=== PATIENT | male | born 1960 | race Two or more races ===

== ENCOUNTER 2016-07-29 16:19 | Inpatient (IN) | payer MEDICAID ==
--- NOTE | 2016-07-29 16:47 | EDPHY ---
H & P Time Seen by Provider: 07/29/16 16:43 HPI/ROS: Chief complaint. Swelling to abdomen and legs HPI. 56-year-old male presents with abdomen leg and scrotal swelling over the past 2 weeks. He has a long history of cirrhosis and hepatitis-C. This was secondary to IVDA though he says he has been clean 5-6 years. He also had had problem with alcoholism but did not drink for 4 years however he started drinking again this past 6 months. His last drink was 2 weeks ago. He has had right shoulder pain for 2 weeks, abdominal distension, swelling of the scrotum and bilateral leg edema for the past 2 weeks. There has been no trauma or injury. He also notes blurry vision and off balance. He is short of breath. No fever. ROS Constitutional. Weakness Eyes. no problems with vision ENT. no sore throat, no nasal drainage Cardiovascular. no chest pain Respiratory. Shortness of breath Abdominal. Abdominal distention . Scrotal swelling making it difficult to urinate MS. Swelling of both legs Skin. no rash Lymph. no swollen glands Neuro. No headache but difficult to walk and some confusion, blurry vision and off balance Past Medical/Surgical History: Past medical history hep C, cirrhosis, IVDA, alcoholism, back surgery Social History: , non smoker, no recent alcohol for 2 weeks Smoking Status: Never smoked Physical Exam: General Appearance: Alert well-developed male moderate distress vital signs are stable Eyes: Sclera are icteric. ENT, Mouth: Mucous membranes are moist. Respiratory: Decreased breath sounds on right Cardiovascular: Regular rate and rhythm. Gastrointestinal: Abdomen is distended and nontender. Ascites fluid waves. No masses or organomegaly. Scrotum is markedly edematous and swollen Neurological: Awake and alert, sensory and motor exams grossly normal. Skin: Warm and dry, no rashes. Musculoskeletal: Neck is supple nontender. Extremities 4+ edema to legs Psychiatric: Patient is oriented X 3, there is no agitation. Constitutional: Initial Vital Signs Temperature (C) 36.7 C 07/29/16 16:25 Heart Rate 87 07/29/16 16:25 Respiratory Rate 18 07/29/16 16:25 Blood Pressure 143/88 H 07/29/16 16:25 O2 Sat (%) 95 07/29/16 16:25 O2 Delivery Mode Room Air Allergies/Adverse Reactions: No Known Allergies Allergy (Verified 08/01/14 13:52) Home Medications: Medication Instructions Recorded NK [No Known Home Meds] 07/29/16 Medical Decision Making - Diagnostics EKG Interpretation: EKG interpreted by me shows normal sinus rhythm normal interval. There is left axis deviation. QRS is normal there does appear to be prolonged QT interval with QTC at 5:06 a.m.. There is some anterior T-wave inversion but no ST elevation or depression. Rate is 78 Imaging Results: Imaging Impressions Abdomen CT 07/29/16 17:21 Impression: 1. Mild right pleural effusion with adjacent consolidation and possible pneumonitis. Rule out pneumonia. 2. Moderate to large amount of ascites with progression of cirrhosis. 3. Portal hypertension with large tortuous collateral vessel in the upper abdomen between the proximal portal vein and the left renal vein. 4. Mild to moderate splenomegaly. 5. Possible distal right ureteral calculus just above the UVJ without significant hydronephrosis. 6. Nonobstructive calculus lower pole left kidney. These findings were discussed by telephone with Dr. Vinayak Uriarte at 1935 hrs. Chest X-Ray 07/29/16 17:21 Impression: 1. Peribronchial thickening with right basilar consolidation that could represent atelectasis, effusion, and/or pneumonia. 2. Linear left basilar atelectasis/scarring. Head CT 07/29/16 17:22 Impression: 1. Mild to moderate atrophy. 2. No hemorrhage, mass effect, or definite acute peripheral infarct. 3. Moderate nonspecific hypodensities in the white matter of bilateral cerebral hemispheres. Differential diagnosis includes microvascular ischemic disease, post-infectious/post-inflammatory sequela, atypical demyelinating disease, or migraine-related sequela. Small white matter lacunar infarcts may also have this appearance. These findings were discussed by telephone with Dr. Vinayak Uriarte at 1928 hrs. Chest x-ray interpreted by me and reviewed with Dr. Alcantara shows consolidation in the right lung base and right pleural effusion Abdominal CT with IV contrast reviewed by me and discussed with Dr. Estevez shows progressive cirrhosis compared to previous CT. Consolidation right lower lobe consistent with pneumonia. Lots of ascites. Huge varicosities. Vague density around the UVJ of unclear significance. Procedures: IV normal saline, blood cultures, lactate here, sepsis workup Rocephin IV for apparent right lower lobe infiltrate after blood cultures ED Course/Re-evaluation: Re-evaluation 745 patient is stable. The patient and I discussed imaging lab results, treatment plan including recommendation for admission. Patient expresses understanding and agreement I consulted and discussed the case with Dr. Palmer, hospitalist, who agrees to the admission Differential Diagnosis: Patient has elevated ammonia level. I think any altered mental status is secondary to metabolic. I considered intracranial bleeding secondary to elevated INR from liver failure. Significant ascites. Patient also appears to have pneumonia. Sepsis workup was performed and has a normal lactate. - Data Points Laboratory Results: Laboratory Results 07/29/16 17:55 07/29/16 17:55 07/29/16 07/29/16 07/29/16 17:55 17:55 17:55 WBC RBC Hgb Hct MCV MCH MCHC RDW Plt Count MPV Neut % (Auto) Lymph % (Auto) [place] % (Auto) Eos % (Auto) Baso % (Auto) Nucleat RBC Rel Count Absolute Neuts (auto) Absolute Lymphs (auto) Absolute Monos (auto) Absolute Eos (auto) Absolute Basos (auto) Absolute Nucleated RBC Immature Gran % Seg Neutrophils % Band Neutrophils % Lymphocytes % Monocytes % Eosinophils % Basophils % Immature Gran # Absolute Seg Neuts Absolute Band Neuts Absolute Lymphocytes Absolute Monocytes Absolute Eosinophils Absolute Basophils Platelet Estimate Polychromasia Oval Macrocytes Echinocytes Acanthocytes (Spur) PT 40.4 SEC H SEC (12.0-15.0) INR 4.09 H (0.83-1.16) APTT 46.8 SEC H SEC (23.0-38.0) VBG Lactic Acid Sodium 134 mEq/L mEq/L (134-144) Potassium 3.5 mEq/L mEq/L (3.5-5.2) Chloride 103 mEq/L mEq/L (97-110) Carbon Dioxide 24 mEq/l mEq/l (22-31) Anion Gap 7 mEq/L L mEq/L (8-16) BUN 12 mg/dL mg/dL (7-23) Creatinine 0.7 mg/dL mg/dL (0.7-1.3) Estimated GFR > 60 Glucose 116 mg/dL H mg/dL (70-100) Calcium 7.9 mg/dL L mg/dL (8.5-10.4) Total Bilirubin 18.1 mg/dL H mg/dL (0.1-1.4) Conjugated Bilirubin 10.2 mg/dL H mg/dL (0.0-0.5) Unconjugated Bilirubin 7.9 mg/dL H mg/dL (0.0-1.1) AST 60 IU/L H IU/L (17-59) ALT 39 IU/L IU/L (21-72) Alkaline Phosphatase 186 IU/L H IU/L (38-126) Ammonia 68.0 uMOL/L H uMOL/L (9.0-30.0) Total Protein 6.4 g/dL g/dL (6.3-8.2) Albumin 2.5 g/dL L g/dL (3.5-5.0) Lipase 116.0 IU/L IU/L (23-300) 07/29/16 07/29/16 17:55 17:55 WBC 3.69 10^3/uL L 10^3/uL (3.80-9.50) RBC 3.19 10^6/uL L 10^6/uL (4.40-6.38) Hgb 11.9 g/dL L g/dL (13.7-17.5) Hct 34.3 % L % (40.0-51.0) MCV 107.5 fL H fL (81.5-99.8) MCH 37.3 pg H pg (27.9-34.1) MCHC 34.7 g/dL g/dL (32.4-36.7) RDW 14.5 % % (11.5-15.2) Plt Count 44 10^3/uL L 10^3/uL (150-400) MPV 11.3 fL fL (8.7-11.7) Neut % (Auto) Not Reported Lymph % (Auto) Not Reported [place] % (Auto) Not Reported Eos % (Auto) Not Reported Baso % (Auto) Not Reported Nucleat RBC Rel Count 0.0 % % (0.0-0.2) Absolute Neuts (auto) Not Reported Absolute Lymphs (auto) Not Reported Absolute Monos (auto) Not Reported Absolute Eos (auto) Not Reported Absolute Basos (auto) Not Reported Absolute Nucleated RBC 0.00 10^3/uL 10^3/uL (0-0.01) Immature Gran % Not Reported Seg Neutrophils % 64 % % Band Neutrophils % 7 % % Lymphocytes % 11 % % Monocytes % 16 % % Eosinophils % 1 % % Basophils % 1 % % Immature Gran # Not Reported Absolute Seg Neuts 2.36 10^/uL 10^/uL (1.70-6.50) Absolute Band Neuts 0.26 10^3/uL 10^3/uL (0.00-0.70) Absolute Lymphocytes 0.41 10^3/uL L 10^3/uL (1.00-3.00) Absolute Monocytes 0.59 10^3/uL 10^3/uL (0.30-0.80) Absolute Eosinophils 0.04 10^3/uL 10^3/uL (0.03-0.40) Absolute Basophils 0.04 10^3/uL 10^3/uL (0.02-0.10) Platelet Estimate DECREASED L (ADEQ) Polychromasia 1+ H Oval Macrocytes 1+ H Echinocytes 1+ H Acanthocytes (Spur) 1+ H PT INR APTT VBG Lactic Acid 1.9 mmol/L mmol/L (0.7-2.1) Sodium Potassium Chloride Carbon Dioxide Anion Gap BUN Creatinine Estimated GFR Glucose Calcium Total Bilirubin Conjugated Bilirubin Unconjugated Bilirubin AST ALT Alkaline Phosphatase Ammonia Total Protein Albumin Lipase Medications Given: Discontinued Medications Ceftriaxone Sodium/Dextrose (Rocephin 1 Gm (Premix)) 50 mls @ 100 mls/hr IV EDNOW ONE PRN Reason: Protocol Stop: 07/29/16 20:13 Last Admin: 07/29/16 20:36 Dose: 50 mls Departure - Departure Disposition: [facility] Acute Clinical Impression: Cirrhosis Qualifiers: Hepatic cirrhosis type: alcoholic cirrhosis Ascites presence: with ascites Qualified Code(s): K70.31 - Alcoholic cirrhosis of liver with ascites Pneumonia Qualifiers: Pneumonia type: due to unspecified organism Laterality: right Lung location: lower lobe of lung Qualified Code(s): J18.1 - Lobar pneumonia, unspecified organism Condition: Fair
[2016-07-29 18:02] LABS: ADD DIFF? YES; ADD MORPH? NO; ADD SCAN? NO; ATYPICAL LYMPHOCYTE FLAG 40 (0-99); FRAGMENT RBC FLAG 0 (0-99); HEMATOCRIT 34.3 % (40.0-51.0); HEMOGLOBIN 11.9 g/dL (13.7-17.5); LEFT SHIFT FLG 10 (0-99); LIPEMIA HEMOLYSIS FLAG 90 (0-99); MEAN CELL HEMOGLOBIN 37.3 pg (27.9-34.1); MEAN CELL HEMOGLOBIN CONCENTR. 34.7 g/dL (32.4-36.7); MEAN CELL VOLUME 107.5 fL (81.5-99.8); MEAN PLATELET VOLUME 11.3 fL (8.7-11.7); PLATELET CLUMPS FLAG 10 (0-99); RED BLOOD CELL COUNT 3.19 10^6/uL (4.40-6.38); RED CELL DISTRIBUTION WIDTH 14.5 % (11.5-15.2)
[2016-07-29 18:06] LABS: PLATELET COUNT 44 10^3/uL (150-400)
[2016-07-29 18:11] LABS: INR 4.09 (0.83-1.16); PROTIME(PATIENT) 40.4 SEC (12.0-15.0)
[2016-07-29 18:12] LABS: APTT 46.8 SEC (23.0-38.0)
[2016-07-29 18:26] LABS: ALANINE AMINOTRANSFERASE 39 IU/L (21-72); ALBUMIN 2.5 g/dL (3.5-5.0); ALKALINE PHOSPHATASE 186 IU/L (38-126); ANION GAP 7 mEq/L (8-16); ASPARTATE AMINOTRANSFERASE 60 IU/L (17-59); BILIRUBIN,TOTAL 18.1 mg/dL (0.1-1.4); BILIRUBIN-CONJUGATED 10.2 mg/dL (0.0-0.5); BILIRUBIN-UNCONJUGATED 7.9 mg/dL (0.0-1.1); CALCIUM 7.9 mg/dL (8.5-10.4); CARBON DIOXIDE 24 mEq/l (22-31); CHLORIDE 103 mEq/L (97-110); CREATININE 0.7 mg/dL (0.7-1.3); GLOMERULAR FILTRATION RATE > 60; GLUCOSE 116 mg/dL (70-100); POTASSIUM 3.5 mEq/L (3.5-5.2); SODIUM 134 mEq/L (134-144); TOTAL PROTEIN 6.4 g/dL (6.3-8.2)
[2016-07-29] MEDS ORDERED: IOPAMIDOL (ISOVUE-300) 100 ML BTL IV ONE (18:38)
--- NOTE | 2016-07-29 18:40 | CPEKG ---
Heart Rate: 78 RR Interval: 769 P-R Interval: 168 QRSD Interval: 92 QT Interval: 444 QTC Interval: 506 P Sears: 27 QRS Sears: -7 T Wave Sears: 19 EKG Severity - ABNORMAL ECG - EKG Impression: SINUS RHYTHM EKG Impression: NONSPECIFIC T ABNORMALITIES, ANTERIOR LEADS EKG Impression: PROLONGED QT INTERVAL Electronically Signed By: Flaca Jay 29-Jul-2016 22:04:02
[2016-07-29 18:42] LABS: ACANTHOCYTES 1+; ECHINOCYTES 1+; MACROCYTES 1+; PLATELET ESTIMATE DECREASED (ADEQ); POLYCHROMASIA 1+
[2016-07-29 20:38] LABS: COLOR AMBER; LEUKOCYTE ESTERASE,URINE NEGATIVE (NEGATIVE); NITRITE,URINE NEGATIVE (NEGATIVE)
[2016-07-29 20:54] LABS: BACTERIA TRACE /hpf (NONE SEEN); MUCUS TRACE /lpf (NONE-1+)
[2016-07-29] MEDS ORDERED: ONDANSETRON 4 MG/2 ML VIAL IVP PRN (21:00)
[2016-07-29] MEDS ORDERED: ACETAMINOPHEN 500 MG TAB PO PRN (21:00)
--- NOTE | 2016-07-29 21:42 | GHP ---
[f rep st] HISTORY AND PHYSICAL DATE OF ADMISSION: 07/29/2016 CHIEF COMPLAINT: Edema. HISTORY: The patient is a 56-year-old male with known cirrhosis of the liver from hepatitis C and a lcohol. He did quit drinking successfully for 4 years but picked it up again about 6 months ago. Vinicio islas subsequently noticed worsening edema as well as his eyes turning yellow and his urine turning xander ge and he decided it was a good idea to stop drinking again. He has now been off alcohol for 2 week s and swears he will never drink ever again. He has chronic lower extremity edema, but over the las t 2 weeks he has noticed abdominal distention and scrotal swelling with a 15 pound weight gain. Sin ce he quit drinking 2 weeks ago, his urine is actually returning to a more normal color and his thinks that his eyes are less yellow. The edema is so bad he is having a difficult time ambulating and getting around. He denies any abdominal pain. There has been no fever but he has occasionally been coughing and he has a severe pain in his right shoulder. PAST MEDICAL HISTORY: 1. 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 2. 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 MEDICATIONS: None. ALLERGIES: No known drug allergies. SOCIAL HISTORY: Occasional tobacco. Alcohol as above. Quit 2 weeks ago but had restarted. Previo us IV drug abuse but none for 5 years. Lives with his . 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 REVIEW OF SYSTEMS: Complete review of systems obtained. Review of system is negative regarding con stitutional, HEENT, GI, pulmonary, cardiovascular, , hematology, skin, musculoskeletal, endocrine, psych for positives as in HPI. FAMILY HISTORY: Reviewed, noncontributory to presenting complaint. PHYSICAL EXAMINATION: GENERAL: Well-developed, well-nourished male, in no acute distress. VITAL S IGNS: Temperature is 36.7, pulse 87, blood pressure 143/88, saturating 95% on room air. EYES: Scl eral icterus. Pupils equal and reactive to light. ENT: Normal ears and nose. Hearing intact. No rmal lips and teeth. Oropharynx moist. NECK: Trachea midline. No thyromegaly. CHEST: Normal ef fort. Lungs clear to auscultation bilaterally. CARDIOVASCULAR: Regular rate and rhythm. No murmu r. 4+ lower extremity edema. ABDOMEN: Soft, distended. Hepatomegaly. Nontender. SKIN: Warm, d ry, intact without rash. MUSCULOSKELETAL: No cyanosis or clubbing. Strength 5/5 upper and lower e xtremities. NEUROLOGIC: Cranial nerves intact. Normal sensation light touch. He does have positi ve asterixis. PSYCH: Alert and oriented x3. Normal affect. Normal judgment. Normal insight. No rmal memory. LABORATORY DATA: White count 3.69, hematocrit 34.3, platelets 44. Sodium 134, potassium 3.5, chlor aleksey of 103, bicarb 24, BUN 12, creatinine 0.17, glucose 116, total bilirubin is 18, AST is 60, jimmie ia 68. Lactate is 1.9. INR 4.04. Chest x-ray shows an infiltrate at the right base. CT scan of t he abdomen and pelvis shows a large amount of ascites with cirrhosis. Head CT is negative. Chest x -ray reviewed by me, that is my personal interpretation regarding right basilar infiltrate. This ca se was discussed with Dr. Uriarte, emergency room physician. ASSESSMENT/PLAN: 1. Ascites, edema and scrotal swelling all consistent with massive volume overload due to cirrhosis of the liver and portal hypertension. We will start him on IV Lasix and spironolactone. He would benefit from a paracentesis but I am concerned with his INR of 4 and his platelets of 44, of increas ed risk with his procedure. We will hold off on ordering it for now and just try diuresis. 2. 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 He quit again 2 weeks ago and he was encouraged to continue with this. We will follow his LFTs. 3. Hepatic encephalopathy. We will start him on lactulose. 4. Right lower lobe pneumonia. He does have a cough and referred pain to his right shoulder. My s uspicion is there is an element of pneumonia. We will start him on Levaquin. CODE STATUS: Full. ADMISSION STATUS: 1. We will admit to inpatient as he is medically complex anticipate greater than 2 midnights. 2. DVT prophylaxis. He is auto anticoagulated so therefore low risk. /[id number]/MODL
[2016-07-29] MEDS: FUROSEMIDE 40 MG/4 ML VIAL IVP SCH (22:42)
[2016-07-29] MEDS: LACTULOSE 20 GM/30 ML UDCUP PO SCH (22:43)
[2016-07-29] MEDS: SPIRONOLACTONE 25 MG TAB PO SCH (22:45)
[2016-07-30 05:37] LABS: ADD DIFF? YES; ADD MORPH? NO; ATYPICAL LYMPHOCYTE FLAG 0 (0-99); FRAGMENT RBC FLAG 0 (0-99); HEMOGLOBIN 11.1 g/dL (13.7-17.5); LEFT SHIFT FLG 10 (0-99); LIPEMIA HEMOLYSIS FLAG 90 (0-99); MEAN CELL HEMOGLOBIN 37.9 pg (27.9-34.1); MEAN CELL HEMOGLOBIN CONCENTR. 34.7 g/dL (32.4-36.7); MEAN CELL VOLUME 109.2 fL (81.5-99.8); MEAN PLATELET VOLUME 10.6 fL (8.7-11.7); PLATELET CLUMPS FLAG 10 (0-99); RED BLOOD CELL COUNT 2.93 10^6/uL (4.40-6.38); RED CELL DISTRIBUTION WIDTH 14.6 % (11.5-15.2)
[2016-07-30 05:40] LABS: ADD SCAN? NO; PLATELET COUNT 35 10^3/uL (150-400)
[2016-07-30 05:45] LABS: INR 4.06 (0.83-1.16); PROTIME(PATIENT) 40.2 SEC (12.0-15.0)
[2016-07-30 05:50] LABS: ALANINE AMINOTRANSFERASE 37 IU/L (21-72); ALBUMIN 2.1 g/dL (3.5-5.0); ALKALINE PHOSPHATASE 148 IU/L (38-126); ANION GAP 5 mEq/L (8-16); ASPARTATE AMINOTRANSFERASE 52 IU/L (17-59); BILIRUBIN,TOTAL 16.6 mg/dL (0.1-1.4); BILIRUBIN-CONJUGATED 9.7 mg/dL (0.0-0.5); BILIRUBIN-UNCONJUGATED 6.9 mg/dL (0.0-1.1); CALCIUM 7.9 mg/dL (8.5-10.4); CARBON DIOXIDE 25 mEq/l (22-31); CHLORIDE 104 mEq/L (97-110); CREATININE 0.7 mg/dL (0.7-1.3); GLOMERULAR FILTRATION RATE > 60; GLUCOSE 122 mg/dL (70-100); MAGNESIUM 1.6 mg/dL (1.6-2.3); POTASSIUM 3.1 mEq/L (3.5-5.2); SODIUM 134 mEq/L (134-144); TOTAL PROTEIN 5.9 g/dL (6.3-8.2)
[2016-07-30] MEDS: FUROSEMIDE 40 MG/4 ML VIAL IVP SCH ×3 (06:06→21:52)
[2016-07-30] MEDS ORDERED: MAGNESIUM SULF 2 GM/WATER 50 ML IV ONE (06:07)
[2016-07-30] MEDS ORDERED: PROTOCOL POTASSIUM 1 DOSE MISC PRN (06:07)
[2016-07-30] MEDS ORDERED: POTASSIUM CL 10 MEQ TAB PO ONE (06:10)
[2016-07-30 06:38] LABS: PLATELET ESTIMATE DECREASED (ADEQ)
[2016-07-30 06:39] LABS: ACANTHOCYTES 1+; MACROCYTES 1+
[2016-07-30 07:25] LABS: POTASSIUM 3.1 mEq/L (3.5-5.2)
[2016-07-30] MEDS: SPIRONOLACTONE 25 MG TAB PO SCH (08:29)
[2016-07-30] MEDS: LACTULOSE 20 GM/30 ML UDCUP PO SCH ×3 (08:29→21:52)
[2016-07-30] MEDS ORDERED: oxyCODONE IR 5 MG TAB PO PRN (11:07)
[2016-07-30] MEDS ORDERED: SPIRONOLACTONE 50 MG TAB PO ONE (13:25)
[2016-07-30] MEDS ORDERED: PHYTONADIONE 2.5 MG/2.5 ML ORAL UDL PO ONE (13:26)
--- NOTE | 2016-07-30 13:35 | HOSPPROG ---
Hospitalist Progress Note Assessment/Plan: 56 y/o male new to my care today with h/o Hep C and alcohol abuse presenting with #anasarca in the setting of ESLD due to hep c and alcohol related cirrhosis ( child Rasheed score C) -increase aldactone to 100mg daily -cont iv lasix for now -will defer paracentesis given severe thrombocytopenia and coagulopathy -I discussed the case with Dr. Eng from GI who will see the patient in consultation later today #reported hepatic encephalopathy -cont lactulose #CAP -cont Levaquin #coagulopathy -start daily vitamin k and monitor Dispo: I discussed the severity of the disease with the patient who verbalizes understanding to his situation. He would like to continue to maintain sobriety and explore all treatment options and is not ready to pursue hospice/palliative care Subjective: reports improved abd swelling. reports bloating Objective: Vital Signs Temp Pulse Resp BP Pulse Ox 36.8 C 79 20 130/87 H 93 07/30/16 11:12 07/30/16 11:12 07/30/16 11:12 07/30/16 11:12 07/30/16 11:12 Laboratory Results 07/30/16 05:02 07/30/16 05:02 07/29/16 07/30/16 07/31/16 05:59 05:59 05:59 Intake Total 300 740 Output Total 2175 870 Balance -1875 -130 PT 40.2 SEC (12.0-15.0) H 07/30/16 05:02 INR 4.06 (0.83-1.16) H 07/30/16 05:02 ct abd reviewed no obvious liver mass - Physical Exam Constitutional: no apparent distress, appears nourished, not in pain Ears, Nose, Mouth, Throat: moist mucous membranes, hearing normal, ears appear normal, no oral mucosal ulcers Cardiovascular: regular rate and rhythym, no murmur, rub, or gallop Respiratory: no respiratory distress, no rales or rhonchi, clear to auscultation Gastrointestinal: normoactive bowel sounds, soft, non-tender abdomen, no palpable masses, distension, No guarding, No rebound Skin: no rashes or abrasions, no fluctuance, no induration, other (spider angiomas on chest) Neurologic: AAOx3, sensation intact bilaterally Psychiatric: interacting appropriately, not anxious, not encephalopathic, thought process linear ICD10 Worksheet Patient Problems: Problems Problem Status Onset Cellulitis Acute Cirrhosis of liver due to hepatitis C Acute Cirrhosis Acute Pneumonia Acute
--- NOTE | 2016-07-30 15:04 | GCON ---
[f rep st] CONSULTATION DATE OF CONSULTATION: 07/30/2016 CHIEF COMPLAINT: Ascites. HISTORY OF PRESENT ILLNESS: I am asked to see this patient in consultation by Dr. Najera for chief complaint of ascites and anasarca. The patient is a 56-year -old with a long history of alcohol abuse and hepatitis C, previously seen by my partner, Dr. Jean Gerardo, and offered treatment for his hepatitis C, but was not able to coordinate with insurance and then was lost to followup. He did have an upper endoscopy in October 2014. EGD showed grade 1 esophageal varices and gastroesophageal varices. He was placed on a beta ronaldo. The patient has been drinking, although 3 weeks ago developed significant edema and decided to quit drinking. He had no alcohol for the past 3 weeks, but continued to have abdominal swelling and lower leg swelling. He tells me he has never had ascites before. He has had some nausea and vomiting, but no hematemesis, no melena, no bright red blood in his stools, no diarrhea or constipation, no significant abdominal pain, but has been found to have probable pneumonia during his evaluation on this hospital stay. He has been placed on Lasix and Aldactone. He states his ascites feels somewhat better today. ALLERGIES: Patient has no reported allergies. MEDICATIONS: Upon admission, patient was taking no medications. PAST MEDICAL HISTORY: Notable for liver disease from alcohol and hepatitis C. He has postherpetic neuralgia. SOCIAL HISTORY: The patient drinks alcohol, but stopped 3 weeks ago. FAMILY HISTORY: Negative for liver disease. REVIEW OF SYSTEMS: I performed a complete review of systems, which is negative except for pertinent positives and negatives as noted in the HPI above. PHYSICAL EXAMINATION: VITAL SIGNS: The patient is afebrile at 36.8, BP 136/60 , pulse 79. CONSTITUTIONAL: Patient alert and oriented x3. HEENT: Eyes have scleral icterus. Oral: Has no mouth lesions. CARDIOVASCULAR: Regular rate and rhythm. CHEST: Clear to auscultation with some decreased breath sounds in the left base. GI: Has a distended abdomen. Positive bowel sounds. Soft. Ascites present. NEUROLOGIC: No asterixis. SKIN: No rashes, but does have significant pedal edema to both lower extremities. LABORATORY DATA: BUN and creatinine are 12 and 0.7, sodium is 134, potassium 3.1, alk phos 148, AST 52, ALT 57, total bilirubin was 16.6, albumin is low at 2.1. Pro time elevated at 40.2 with an INR 4.06. Lipase normal at 116. White count is 3. Platelets are low at 39. He is anemic with a hemoglobin of 11.1, hematocrit of 32, with an MCV of 109. MELD score sodium is 34. CT scan shows pleural effusion, likely pneumonia, ascites, evidence of portal hypertension. ASSESSMENT: 1. Patient with liver disease, underlying cirrhosis, probably with portal hypertension and ascites. The patient has had decompensation, likely from recent alcohol, but also may be contributed from recent pneumonia and infection. At this point, he has no overt signs of GI bleeding. Given his coagulopathy and low platelets, he would be overall higher risk for paracentesis , and I think it is reasonable to treat with diuretics. He is already on antibiotics for his pneumonia. 2. Hepatic encephalopathy. The patient improved with lactulose. 3. Significant coagulopathy. 4. Thrombocytopenia. PLAN: Agree with supportive care. I would recommend increasing his diuretics and monitoring his sodium and renal function, monitoring his I's and O's. Agree with low-sodium diet. Recommend thiamine and folate. We will check a baseline alpha fetoprotein. The patient may need to start beta blockers again, as he was on carvedilol 6.25 mg previously for his mild underlying varices. The patient should have followup with our print line supervisor and may reconsider treatment for hepatitis C if he can remain abstinent from alcohol. At this point, he would not be a transplant candidate given his recent alcohol use. Thank you for this consult. /[id number]/MODL MTDD
[2016-07-30] MEDS ORDERED: PNEUMOCOCCAL 0.5ML VACCINE VIAL IM ONE (16:36)
[2016-07-30 19:19] LABS: POTASSIUM 3.2 mEq/L (3.5-5.2)
[2016-07-30] MEDS ORDERED: POTASSIUM CL 20 MEQ TAB PO ONE (20:44)
[2016-07-30 22:19] VITALS: PULSE 88
[2016-07-31] MEDS ORDERED: oxyCODONE IR 5 MG TAB PO SCH
[2016-07-31] MEDS ORDERED: LACTULOSE PO SCH
[2016-07-31] MEDS ORDERED: CARVEDILOL 3.125 MG TAB PO SCH
[2016-07-31] MEDS ORDERED: FUROSEMIDE 40 MG TAB PO SCH
[2016-07-31 05:13] LABS: % IMMATURE GRANULYOCYTES 1.4 % (0.0-1.1); ABSOLUTE IMMATURE GRANULOCYTES 0.07 10^3/uL (0.00-0.10); ADD DIFF? NO; ADD MORPH? NO; ADD SCAN? NO; ATYPICAL LYMPHOCYTE FLAG 0 (0-99); FRAGMENT RBC FLAG 0 (0-99); HEMATOCRIT 32.5 % (40.0-51.0); HEMOGLOBIN 11.4 g/dL (13.7-17.5); LEFT SHIFT FLG 10 (0-99); LIPEMIA HEMOLYSIS FLAG 90 (0-99); MEAN CELL HEMOGLOBIN 37.4 pg (27.9-34.1); MEAN CELL HEMOGLOBIN CONCENTR. 35.1 g/dL (32.4-36.7); MEAN CELL VOLUME 106.6 fL (81.5-99.8); MEAN PLATELET VOLUME 10.6 fL (8.7-11.7); PLATELET CLUMPS FLAG 0 (0-99); RED BLOOD CELL COUNT 3.05 10^6/uL (4.40-6.38); RED CELL DISTRIBUTION WIDTH 14.4 % (11.5-15.2)
[2016-07-31 05:19] LABS: PLATELET COUNT 42 10^3/uL (150-400)
[2016-07-31 05:28] LABS: ALANINE AMINOTRANSFERASE 37 IU/L (21-72); ALBUMIN 2.4 g/dL (3.5-5.0); ALKALINE PHOSPHATASE 133 IU/L (38-126); ANION GAP 8 mEq/L (8-16); ASPARTATE AMINOTRANSFERASE 57 IU/L (17-59); BILIRUBIN,TOTAL 19.1 mg/dL (0.1-1.4); CALCIUM 7.7 mg/dL (8.5-10.4); CARBON DIOXIDE 24 mEq/l (22-31); CHLORIDE 101 mEq/L (97-110); CREATININE 0.7 mg/dL (0.7-1.3); GLOMERULAR FILTRATION RATE > 60; GLUCOSE 129 mg/dL (70-100); POTASSIUM 3.3 mEq/L (3.5-5.2); SODIUM 133 mEq/L (134-144); TOTAL PROTEIN 6.3 g/dL (6.3-8.2)
[2016-07-31 05:30] LABS: INR 3.95 (0.83-1.16); PROTIME(PATIENT) 39.3 SEC (12.0-15.0)
[2016-07-31 05:47] LABS: SPECIMEN ICTERUS 21
[2016-07-31 05:53] LABS: BILIRUBIN-UNCONJUGATED 9.1 mg/dL (0.0-1.1)
[2016-07-31 06:10] LABS: PLATELET ESTIMATE DECREASED (ADEQ)
[2016-07-31] MEDS: FUROSEMIDE 40 MG/4 ML VIAL IVP SCH ×2 (06:21→14:26)
[2016-07-31] MEDS ORDERED: POTASSIUM CL 10 MEQ TAB PO ONE ×2 (07:45→10:30)
[2016-07-31 08:45] VITALS: BP 129/78; RESP 16; TEMP 98.8; O2SAT 92
[2016-07-31] MEDS ORDERED: SPIRONOLACTONE 100 MG TAB PO SCH ×2 (09:00)
[2016-07-31] MEDS: LACTULOSE 20 GM/30 ML UDCUP PO SCH (10:01)
--- NOTE | 2016-07-31 14:43 | GDS ---
[f rep st] DISCHARGE SUMMARY DISCHARGE DIAGNOSES: 1. End-stage liver disease secondary to alcohol-related cirrhosis as well as hepatitis C. 2. Improved hepatic encephalopathy. 3. Community-acquired pneumonia. 4. Coagulopathy due to liver disease. 5. Thrombocytopenia due to liver disease. 6. Alcohol abuse. 7. Hepatitis C. CONSULTANTS: Dr. Marisela Eng, [facility] of [facility]. HOSPITAL COURSE AND STAY BY PROBLEM: 1. End-stage liver disease due to alcohol-related cirrhosis as well as hepatitis C: The patient pr esented to the hospital with edema and anasarca. He has been drinking and has not been on medicatio ns to manage his ascites. In the hospital, he was started on IV Lasix at a dose of 40 mg q.8 hours as well as Aldactone. On the day prior to discharge, his Aldactone was increased to 100 mg daily. On day of discharge, the patient states he is feeling much better and has lost 5 kg. He understands that he must quit drinking if he would like to prolong his life span. He plans to follow up at the [facility] next week, where he should have a metabolic panel drawn to ensure his electrolytes and kidneys are tolerating the diuretics. During this hospital stay, he was also started on lactulo se which will be continued on discharge. He was also restarted on Coreg to decrease the risk of eso phageal varicocele bleeding. 2. Community-acquired pneumonia: On initial presentation, a chest x-ray was done that showed perib ronchial thickening with right basilar consolidation possibly representing pneumonia. The patient a lso reported some shoulder pain. Subsequently, he has been treated with levofloxacin. On day of , his oxygen saturations are above 90% on room air. He is not coughing. His shoulder pain i s improving. PHYSICAL EXAM: VITAL SIGNS: On day of discharge, blood pressure 129/78, pulse of 88, respiratory r ate 16, O2 saturation 92% on room air, temperature afebrile. GENERAL: No acute distress. EYES: I cteric sclerae. HEART: S1, S2. LUNGS: Clear. ABDOMEN: Soft and distended with bulging flanks. EXTREMITIES: Bilateral pitting edema. PERTINENT LABS AND STUDIES DONE THIS HOSPITAL STAY: A CT of the abdomen and pelvis done 07/29/2016, refer to report. Head CT done 07/29/2016, refer to report. DISCHARGE MEDICATIONS: Please refer to discharge medication reconciliation in [facility] for full det ails. Below is a preliminary list. New medications on hospital discharge: Levofloxacin 750 mg daily to complete 5 days of treatment, C oreg 3.125 mg p.o. b.i.d., lactulose 20 g p.o. b.i.d., Aldactone 100 mg daily in the morning, Lasix 40 mg in the morning, oxycodone 5-10 mg p.o. q.4 hours p.r.n. shoulder pain, prescription for #20 wa s given. DISCHARGE INSTRUCTIONS: The patient will be discharged from the hospital where he should follow up at the [facility] earlier next week where he should have a metabolic panel done prior to the ap pointment. He should also follow up with Dr. Gerardo at [facility] in 2-4 weeks. Once again , he was counseled to abstain from alcohol use. Greater than 30 minutes were spent on the discharge of this patient. /[id number]/MODL
== END 2016-07-31 14:55 | disposition home or self-care (01) | DRG 432 ==
LOC: F3E 22:13
PROVIDERS: ADMIT Internal Medicine; ATTEND Internal Medicine
DX: K70.31 Alcoholic cirrhosis of liver with ascites (principal); K70.11 Alcoholic hepatitis with ascites; K70.40 Alcoholic hepatic failure without coma; J18.9 Pneumonia, unspecified organism; D68.4 Acquired coagulation factor deficiency; B19.20 Unspecified viral hepatitis C without hepatic coma
CPT/HCPCS: 96365; 97161-GP; 97166-GO; 97535-GO; G0009; J0696; J1956; J2405; Q9967

== ENCOUNTER 2016-09-06 13:44 | Inpatient (IN) | payer MEDICAID ==
--- NOTE | 2016-09-06 14:32 | EDPHY ---
H & P Stated Complaint: ran out of all meds x 2 weeks including lasix, swollen from abd to toes Time Seen by Provider: 09/06/16 14:31 - Personal History Current Tetanus/Diphtheria Vaccine: Unsure Current Tetanus Diphtheria and Acellular Pertussis (TDAP): Unsure Tetanus Vaccine Date: 2009 - Medical/Surgical History Hx Asthma: No Hx Chronic Respiratory Disease: No Hx Diabetes: No Hx Cardiac Disease: Yes Hx Renal Disease: No Hx Cirrhosis: No Hx Alcoholism: No Hx HIV/AIDS: No Hx Splenectomy or Spleen Trauma: No Other PMH: Knee surgery, recent shingles rash 2014 with postherpetic neuralgia, Hepatitis C, back pain - slipped disks, pinched nerves, ETOH abuse, shoulder pain - Social History Smoking Status: Never smoked Constitutional: Initial Vital Signs Temperature (C) 36.5 C 09/06/16 13:48 Heart Rate 92 09/06/16 13:48 Respiratory Rate 18 09/06/16 13:48 Blood Pressure 109/78 09/06/16 13:48 O2 Sat (%) 93 09/06/16 13:48 O2 Delivery Mode Nasal Cannula O2 (L/minute) 2 Allergies/Adverse Reactions: No Known Allergies Allergy (Verified 08/01/14 13:52) Home Medications: Medication Instructions Recorded Unobtainable 09/06/16 Medical Decision Making - Diagnostics Imaging Results: Imaging Impressions Abdomen Ultrasound 09/06/16 14:44 Impression: Large-volume ascites. ED Course/Re-evaluation: CHIEF COMPLAINT: Diffuse edema, poor mobility HISTORY OF PRESENT ILLNESS: The patient is a 56 y/o male, with a history of hepatitis C and cirrhosis, complaining of diffuse body swelling worsening over the last 2 weeks. He reports he was admitted a few weeks ago for the same issue , but did not require a paracentesis. He was discharged with a prescription and instructions to follow up with his PCP at the end of this month; he has an appointment scheduled for 09/10. He ran out of medication 2 weeks ago and complains of worsening abdominal swelling extending into all extremities. He's had very limited mobility due to this and requires assistance even getting to the bathroom. REVIEW OF SYSTEMS: A 10 point review of systems was performed and is negative with the exception of the elements mentioned in the history of present illness. PHYSICAL EXAM: HR, BP, O2 Sat, RR. Temp noted General Appearance: Alert, well hydrated, appropriate, and non-toxic appearing. Head: Atraumatic without scalp tenderness or obvious injury Eyes: Pupils equal, round, reactive to light and accommodation, EOMI, no trauma , no injection. Scleral icterus. Nose: Atraumatic, no rhinorrhea, clear. Throat: mucus membranes moist. Neck: Supple, nontender, no lymphadenopathy. Respiratory: No retractions, no distress, no wheezes, and no accessory muscle use. Lungs are clear to auscultation bilaterally. Cardiovascular: Regular rate and rhythm, no murmurs, rubs, or gallops. Bilateral carotid, radial, dorsalis pedis, and posterior tibial pulses intact. Good capillary refill all extremities. Gastrointestinal: Abdomen is tense and distended with a positive fluid wave, nontender, no masses, no rebound, no guarding, no peritoneal signs. Musculoskeletal: Normal active ROM of all extremities, atraumatic. Diffuse peripheral edema. Neurological: Alert, appropriate, and interactive. Nonfocal neuro exam. Skin: No rashes, good turgor, no nodules on palpation. Jaundiced. Past medical history: Hepatitis C, cirrhosis, liver disease Past surgical history: Denies Family history: noncontributory Social history: Family member at bedside. History of alcohol abuse. PCP: Dr. Davis Reviewed prior medical records including admission 07/29/16 for similar symptoms. DIAGNOSTICS/PROCEDURES/CRITICAL CARE TIME: Abdomen US: ascites. DIFFERENTIAL DIAGNOSIS: The differential diagnosis for the patient's diffuse body swelling included but was not limited to liver failure, ascites, cirrhosis , hypoalbuminemia, congestive heart failure, cor pulmonale, venous stasis, trauma, and DVT. MEDICAL DECISION MAKING: This is a 56 y/o male with a history of cirrhosis who presents with diffuse peripheral edema and tense abdomen with distension and fluid wave and inability to care for himself due to these symptoms. He reports his symptoms have worsened over the last 2 weeks since he ran out of his medication following a recent admission for the same complaint. His presentation is consistent with liver failure. Plan for IV, labs, and US-guided paracentesis. Patient's platelets are low at 26, Hct 19, INR 4.6. This elevates his risk of spontaneous bleeding significantly so we will cancel the paracentesis for now. Ammonia 74. 1522: Consulted with Dr. Bro, hospitalist. She would like case management involved as patient likely needs palliative care. location manager is aware. 1558: location manager discussed palliative care options with the patient. He is open to palliative care consult. Critical care time spent by me, Dr. Gardner, exclusively with this patient was 45 minutes, exclusive of PA time and exclusive of procedures. The organ system at risk was multisystem including hepatic and vascular. I gave discussed care and and management at length with the hospitalist and family caseworker to determine what palliative care we could offer patient. He required admission to prevent encephalopathy and worsening ascites. - Data Points Laboratory Results: Laboratory Results 09/06/16 14:55 09/06/16 14:55 09/06/16 09/06/16 09/06/16 14:55 14:55 14:55 WBC RBC Hgb Hct MCV MCH MCHC RDW Plt Count MPV Neut % (Auto) Lymph % (Auto) Pender % (Auto) Eos % (Auto) Baso % (Auto) Nucleat RBC Rel Count Absolute Neuts (auto) Absolute Lymphs (auto) Absolute Monos (auto) Absolute Eos (auto) Absolute Basos (auto) Absolute Nucleated RBC Immature Gran % Immature Gran # Platelet Estimate Oval Macrocytes Acanthocytes (Spur) Smear Review By PT 44.6 SEC H SEC (12.0-15.0) INR 4.62 H (0.83-1.16) APTT 54.1 SEC H SEC (23.0-38.0) Sodium 131 mEq/L L mEq/L (134-144) Potassium 3.7 mEq/L mEq/L (3.5-5.2) Chloride 105 mEq/L mEq/L (97-110) Carbon Dioxide 20 mEq/l L mEq/l (22-31) Anion Gap 6 mEq/L L mEq/L (8-16) BUN 12 mg/dL mg/dL (7-23) Creatinine 0.6 mg/dL L mg/dL (0.7-1.3) Estimated GFR > 60 Glucose 167 mg/dL H mg/dL (70-100) Calcium 7.5 mg/dL L mg/dL (8.5-10.4) Total Bilirubin 17.8 mg/dL H mg/dL (0.1-1.4) Conjugated Bilirubin 9.6 mg/dL H mg/dL (0.0-0.5) Unconjugated Bilirubin 8.2 mg/dL H mg/dL (0.0-1.1) AST 54 IU/L IU/L (17-59) ALT 29 IU/L IU/L (21-72) Alkaline Phosphatase 104 IU/L IU/L (38-126) Ammonia 74.0 uMOL/L H uMOL/L (9.0-30.0) Total Protein 6.4 g/dL g/dL (6.3-8.2) Albumin 2.2 g/dL L g/dL (3.5-5.0) Lipase 125.0 IU/L IU/L (23-300) 09/06/16 14:55 WBC 3.42 10^3/uL L 10^3/uL (3.80-9.50) RBC 1.70 10^6/uL L 10^6/uL (4.40-6.38) Hgb 6.7 g/dL L g/dL (13.7-17.5) Hct 19.4 % L % (40.0-51.0) MCV 114.1 fL H fL (81.5-99.8) MCH 39.4 pg H pg (27.9-34.1) MCHC 34.5 g/dL g/dL (32.4-36.7) RDW 16.2 % H % (11.5-15.2) Plt Count 26 10^3/uL L* 10^3/uL (150-400) MPV 9.7 fL fL (8.7-11.7) Neut % (Auto) 59.6 % % (39.3-74.2) Lymph % (Auto) 19.0 % % (15.0-45.0) Pender % (Auto) 16.1 % H % (4.5-13.0) Eos % (Auto) 3.2 % % (0.6-7.6) Baso % (Auto) 0.6 % % (0.3-1.7) Nucleat RBC Rel Count 0.9 % H % (0.0-0.2) Absolute Neuts (auto) 2.04 10^3/uL 10^3/uL (1.70-6.50) Absolute Lymphs (auto) 0.65 10^3/uL L 10^3/uL (1.00-3.00) Absolute Monos (auto) 0.55 10^3/uL 10^3/uL (0.30-0.80) Absolute Eos (auto) 0.11 10^3/uL 10^3/uL (0.03-0.40) Absolute Basos (auto) 0.02 10^3/uL 10^3/uL (0.02-0.10) Absolute Nucleated RBC 0.03 10^3/uL H 10^3/uL (0-0.01) Immature Gran % 1.5 % H % (0.0-1.1) Immature Gran # 0.05 10^3/uL 10^3/uL (0.00-0.10) Platelet Estimate DECREASED L (ADEQ) Oval Macrocytes 1+ H Acanthocytes (Spur) 3+ H Smear Review By Devon SANCHEZ MD PT INR APTT Sodium Potassium Chloride Carbon Dioxide Anion Gap BUN Creatinine Estimated GFR Glucose Calcium Total Bilirubin Conjugated Bilirubin Unconjugated Bilirubin AST ALT Alkaline Phosphatase Ammonia Total Protein Albumin Lipase Departure - Departure Disposition: [facility] Acute Clinical Impression: 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
[2016-09-06 15:03] LABS: % IMMATURE GRANULYOCYTES 1.5 % (0.0-1.1); ABSOLUTE IMMATURE GRANULOCYTES 0.05 10^3/uL (0.00-0.10); ABSOLUTE NRBC COUNT 0.03 10^3/uL (0-0.01); ADD DIFF? NO; ADD MORPH? YES; ADD SCAN? NO; ATYPICAL LYMPHOCYTE FLAG 10 (0-99); FRAGMENT RBC FLAG 0 (0-99); HEMATOCRIT 19.4 % (40.0-51.0); LEFT SHIFT FLG 10 (0-99); LIPEMIA HEMOLYSIS FLAG 90 (0-99); MEAN CELL HEMOGLOBIN 39.4 pg (27.9-34.1); MEAN CELL HEMOGLOBIN CONCENTR. 34.5 g/dL (32.4-36.7); MEAN CELL VOLUME 114.1 fL (81.5-99.8); MEAN PLATELET VOLUME 9.7 fL (8.7-11.7); NRBC-AUTO% 0.9 % (0.0-0.2); PLATELET CLUMPS FLAG 50 (0-99); RED CELL DISTRIBUTION WIDTH 16.2 % (11.5-15.2)
[2016-09-06 15:05] LABS: HEMOGLOBIN 6.7 g/dL (13.7-17.5)
[2016-09-06 15:06] LABS: PLATELET COUNT 26 10^3/uL (150-400)
[2016-09-06 15:18] LABS: INR 4.62 (0.83-1.16); PROTIME(PATIENT) 44.6 SEC (12.0-15.0)
[2016-09-06 15:19] LABS: APTT 54.1 SEC (23.0-38.0)
[2016-09-06 15:21] LABS: ALANINE AMINOTRANSFERASE 29 IU/L (21-72); ALBUMIN 2.2 g/dL (3.5-5.0); ALKALINE PHOSPHATASE 104 IU/L (38-126); ANION GAP 6 mEq/L (8-16); ASPARTATE AMINOTRANSFERASE 54 IU/L (17-59); BILIRUBIN,TOTAL 17.8 mg/dL (0.1-1.4); BILIRUBIN-CONJUGATED 9.6 mg/dL (0.0-0.5); BILIRUBIN-UNCONJUGATED 8.2 mg/dL (0.0-1.1); CALCIUM 7.5 mg/dL (8.5-10.4); CARBON DIOXIDE 20 mEq/l (22-31); CHLORIDE 105 mEq/L (97-110); CREATININE 0.6 mg/dL (0.7-1.3); GLOMERULAR FILTRATION RATE > 60; GLUCOSE 167 mg/dL (70-100); POTASSIUM 3.7 mEq/L (3.5-5.2); SODIUM 131 mEq/L (134-144); TOTAL PROTEIN 6.4 g/dL (6.3-8.2)
[2016-09-06 15:42] LABS: ACANTHOCYTES 3+; MACROCYTES 1+; PLATELET ESTIMATE DECREASED (ADEQ)
[2016-09-06] MEDS ORDERED: FUROSEMIDE 40 MG/4 ML VIAL IVP ONE ×3 (17:42→22:30)
--- NOTE | 2016-09-06 18:27 | GHP ---
[f rep st] HISTORY AND PHYSICAL DATE OF ADMISSION: 09/06/2016 CHIEF COMPLAINT: Swelling. HISTORY OF PRESENT ILLNESS: This is a 56-year-old male with a known history of end-stage liver dise ase, who was admitted in July of 2016 to [facility] with end-stage liver disease, e ncephalopathy and community-acquired pneumonia. Patient was discharged on antibiotics and appropria te medications for end-stage liver disease. Patient reports taking his medications and then not est ablishing an outpatient appointment with a PCP in appropriate time and therefore [facility] Reports that he has been without medications for the last 2 weeks. Patient reports marked ly worsening ascites, abdominal girth, lower extremity edema to the point that he has been unable to ambulate to the restroom or easily get food. Reports some issues with clarity of his thoughts sinc e he stopped taking lactulose. Denies any gum bleeding, nausea, vomiting, hematemesis, hematochezia or melena. Does report some shortness of breath as his abdomen has been getting larger. Denies an y chest pain. Denies any headache. Reports chronic vision changes that have been unchanged. Denies any recent rashes or known sick contacts. PAST MEDICAL HISTORY: 1. 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 2. Hepatic encephalopathy. 3. Recent community-acquired pneumonia. 4. Coagulopathy secondary to liver disease. 5. Chronic thrombocytopenia. 6. History of alcohol abuse with cessation in the past several months. 7. Hepatitis C. 8. 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 SOCIAL HISTORY: Patient reports smoking a cigarette once occasionally, denies any active alcohol us e. Denies illicit drugs. Reports occasionally smoking marijuana. FAMILY HISTORY: Positive for alcohol disease. REVIEW OF SYSTEMS: A 10-point review of systems is negative with the exception of that reported in the HPI. ADVANCED DIRECTIVES: The patient wishes to be full cor, full tube. His would be his medical d ecision maker. PHYSICAL EXAMINATION: VITAL SIGNS: Blood pressure 117/89, heart rate 88, respiratory rate 18, 94% on 2 L, 36.7. GENERAL: This is a jaundiced appearing middle-aged male who looks older than his sta dashawn age. HEENT: Notable for dry mucous membranes. Eye exam is notable for icterus. CARDIAC: Patie nt is regular rate and rhythm. Has a systolic murmur. PULMONARY: Diminished breath sounds at bila teral bases. No rales, rhonchi or wheezing appreciated. GASTROINTESTINAL: Abdomen is distended. I hear positive bowel sounds. Nontender to palpation in all 4 quadrants. MUSCULOSKELETAL: Notable f or 4+ pitting lower extremity edema to the hips. NEUROLOGIC: Patient has positive asterixis, is al ert and oriented x3 with simple questioning. PSYCHIATRIC: He is cooperative on interview and examina tion. DATA: White count 3.4, hematocrit is 19.4, hemoglobin 6.7, platelets of 26. INR is 4.6, sodium 131 , creatinine 0.6, total bilirubin is 17.8, AST/ALT are normal. Ammonia level 74. Ultrasound of the abdomen, which I personally reviewed and interpreted, shows large volume ascites. ASSESSMENT AND PLAN: This is a 56-year-old male presenting with swelling. 1. Acute decompensated end-stage liver disease. The patient has been off his medications with emilia edly worsening ascites, lower extremity edema. Will admit the patient. Treat with oral vitamin K f or his coagulopathy. IV diuretics for his lower extremity edema. Will attempt to correct him to a safe enough point that we can perform a paracentesis. Have discussed the severity of his illness in the likelihood of continued progression. We have contacted Palliative Care from the emergency depa rtment to loop them into the conversation and assist with planning going forward for appropriate goa ls of care. 2. Severe macrocytic anemia. Patient has had a pretty profound hematocrit drop, will check his sto ol for blood. He denies any obvious clinical losses and is clearly hypervolemic based on his liver disease and exam. Will transfuse 2 units of blood with Lasix in between. Monitor his vital signs c losely. 3. Acute hepatic encephalopathy. Patient has marked asterixis on examination. Will reinitiate lac tulose. 4. Chronic thrombocytopenia. Patient's platelet count is 26. Again, no clinical signs of bleeding . We will continue to monitor. 5. Acute hyponatremia. Suspect this is secondary to hypervolemia with his liver disease. More rec ent baselines do have his sodium at 134, will diurese and follow. 6. Prophylaxis. I am going to hold on Lovenox until we can sort out exactly why the patient has dunham ch severe anemia. DIET: Low salt. DISPOSITION: I expect greater than 2 midnights as the patient is presenting with decompensated live r failure and severe microcytic anemia. Discussed the case with the emergency room physician. Patient will be triaged to the medical-surgic al floor for care. /[id number]/MODL
[2016-09-06] MEDS: PHYTONADIONE 2.5 MG/2.5 ML ORAL UDL PO SCH (19:22)
[2016-09-06 19:43] LABS: INR 4.3 (0.83-1.16); PROTIME(PATIENT) 42.1 SEC (12.0-15.0)
[2016-09-06] MEDS: LACTULOSE 20 GM/30 ML UDCUP PO SCH (22:27)
[2016-09-07 04:55] LABS: HEMATOCRIT 24.9 % (40.0-51.0); HEMOGLOBIN 8.9 g/dL (13.7-17.5); LIPEMIA HEMOLYSIS FLAG 90 (0-99); MEAN CELL HEMOGLOBIN 38.9 pg (27.9-34.1); MEAN CELL HEMOGLOBIN CONCENTR. 35.7 g/dL (32.4-36.7); MEAN CELL VOLUME 108.7 fL (81.5-99.8); PLATELET CLUMPS FLAG 10 (0-99); RED BLOOD CELL COUNT 2.29 10^6/uL (4.40-6.38); RED CELL DISTRIBUTION WIDTH 18.7 % (11.5-15.2)
[2016-09-07 05:00] LABS: PLATELET COUNT 33 10^3/uL (150-400)
[2016-09-07 05:05] LABS: INR 3.99 (0.83-1.16); PROTIME(PATIENT) 39.6 SEC (12.0-15.0)
[2016-09-07 05:15] LABS: ALANINE AMINOTRANSFERASE 32 IU/L (21-72); ALBUMIN 2.2 g/dL (3.5-5.0); ALKALINE PHOSPHATASE 129 IU/L (38-126); ANION GAP 5 mEq/L (8-16); ASPARTATE AMINOTRANSFERASE 49 IU/L (17-59); BILIRUBIN,TOTAL 17.6 mg/dL (0.1-1.4); CALCIUM 7.8 mg/dL (8.5-10.4); CARBON DIOXIDE 23 mEq/l (22-31); CHLORIDE 103 mEq/L (97-110); CREATININE 0.7 mg/dL (0.7-1.3); GLOMERULAR FILTRATION RATE > 60; GLUCOSE 157 mg/dL (70-100); POTASSIUM 3.1 mEq/L (3.5-5.2); SODIUM 131 mEq/L (134-144); TOTAL PROTEIN 6.6 g/dL (6.3-8.2)
[2016-09-07 05:30] LABS: SPECIMEN ICTERUS 19
[2016-09-07 05:43] LABS: BILIRUBIN-CONJUGATED 10.3 mg/dL (0.0-0.5); BILIRUBIN-UNCONJUGATED 7.3 mg/dL (0.0-1.1)
[2016-09-07 06:35] LABS: PLATELET ESTIMATE DECREASED (ADEQ)
[2016-09-07] MEDS: LACTULOSE 20 GM/30 ML UDCUP PO SCH ×3 (09:37→21:31)
[2016-09-07] MEDS: PHYTONADIONE 2.5 MG/2.5 ML ORAL UDL PO SCH (09:55)
[2016-09-07] MEDS ORDERED: PROTOCOL POTASSIUM 1 DOSE MISC PRN (10:45)
--- NOTE | 2016-09-07 10:45 | HOSPPROG ---
Hospitalist Progress Note Assessment/Plan: #Decompensated cirrhosis: due to running out of medications. Will treat with IV lasix here. Will do therapeutic paracentesis once INR improved #Mild hepatic encephalopathy: resume lactulose #Coagulopathy: cont vitamin K #Hypervolemic hyponatremia: cont diuresis #h/o alcohol abuse: states last drink 2 months ago #Chronic thrombocytopenia: due to cirrhosis. No active bleed #Hypokalemia: repleting #Macrocytic anemia: denies overt bleeding. H/H stable after transfusion. FOBT pending #Diet: 2L fluid restriction #DVT ppx: SCDs #Disp: warrants inpatient admission with severely decompensated cirrhosis & volume overload, anemia. Cont lasix, serial labs Subjective: feels less confused Objective: Vital Signs Temp Pulse Resp BP Pulse Ox 36.4 C 96 18 122/75 H 92 09/07/16 08:00 09/07/16 08:00 09/07/16 08:00 09/07/16 08:00 09/07/16 10:06 Laboratory Results 09/07/16 04:30 09/07/16 04:30 09/06/16 09/07/16 09/08/16 05:59 05:59 05:59 Intake Total 50 Output Total 350 Balance -300 PT 39.6 SEC (12.0-15.0) H 09/07/16 04:30 INR 3.99 (0.83-1.16) H 09/07/16 04:30 - Physical Exam Constitutional: chronically ill appearing Eyes: icteric sclera Ears, Nose, Mouth, Throat: dry mucous membranes Cardiovascular: regular rate and rhythym, edema (+4 pitting edema up to thighs) Respiratory: no respiratory distress Gastrointestinal: distension (signicantly distended abdomen. 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
[2016-09-07] MEDS ORDERED: POTASSIUM CL 20 MEQ TAB PO ONE ×2 (10:46→23:36)
[2016-09-07] MEDS: CARVEDILOL 3.125 MG TAB PO SCH (17:13)
[2016-09-07 20:36] LABS: POTASSIUM 3.2 mEq/L (3.5-5.2)
[2016-09-08 05:31] LABS: INR 4.26 (0.83-1.16); PROTIME(PATIENT) 41.8 SEC (12.0-15.0)
[2016-09-08 05:53] LABS: ALANINE AMINOTRANSFERASE 28 IU/L (21-72); ALBUMIN 2.1 g/dL (3.5-5.0); ALKALINE PHOSPHATASE 84 IU/L (38-126); ANION GAP 6 mEq/L (8-16); ASPARTATE AMINOTRANSFERASE 48 IU/L (17-59); BILIRUBIN,TOTAL 16.8 mg/dL (0.1-1.4); CALCIUM 7.8 mg/dL (8.5-10.4); CARBON DIOXIDE 22 mEq/l (22-31); CHLORIDE 103 mEq/L (97-110); CREATININE 0.7 mg/dL (0.7-1.3); GLOMERULAR FILTRATION RATE > 60; GLUCOSE 123 mg/dL (70-100); POTASSIUM 3.7 mEq/L (3.5-5.2); SODIUM 131 mEq/L (134-144); TOTAL PROTEIN 5.8 g/dL (6.3-8.2)
[2016-09-08 05:56] LABS: SPECIMEN ICTERUS 17
[2016-09-08 06:02] LABS: BILIRUBIN-CONJUGATED 9.5 mg/dL (0.0-0.5); BILIRUBIN-UNCONJUGATED 7.3 mg/dL (0.0-1.1)
[2016-09-08] MEDS ORDERED: POTASSIUM CL 10 MEQ TAB PO ONE ×2 (07:16→21:31)
[2016-09-08] MEDS: CARVEDILOL 3.125 MG TAB PO SCH ×2 (09:02→17:46)
[2016-09-08] MEDS: LACTULOSE 20 GM/30 ML UDCUP PO SCH ×3 (09:02→21:05)
[2016-09-08] MEDS: PHYTONADIONE 2.5 MG/2.5 ML ORAL UDL PO SCH (09:03)
[2016-09-08 10:28] LABS: HEMATOCRIT 23.6 % (40.0-51.0); HEMOGLOBIN 8.3 g/dL (13.7-17.5); LIPEMIA HEMOLYSIS FLAG 90 (0-99); MEAN CELL HEMOGLOBIN 39.2 pg (27.9-34.1); MEAN CELL HEMOGLOBIN CONCENTR. 35.2 g/dL (32.4-36.7); MEAN CELL VOLUME 111.3 fL (81.5-99.8); PLATELET CLUMPS FLAG 0 (0-99); RED BLOOD CELL COUNT 2.12 10^6/uL (4.40-6.38); RED CELL DISTRIBUTION WIDTH 18.8 % (11.5-15.2)
[2016-09-08 10:41] LABS: PLATELET COUNT 34 10^3/uL (150-400)
--- NOTE | 2016-09-08 10:47 | WOCRNPDOC ---
WOCRN Advanced Assessment Note - Skin Integrity Problem, Advanced Assess Right Posterior Lower Leg Unknown Dressing Type: Open to Air Exudate Amount: None Exudate Characteristic(s): None Corazon Wound Tissue: Swollen, Shiny Wound Edges: Scarred Site Measurement - Head-to-Toe Length X Width X Depth (cm): [id number] Skin Integrity Problem Comment: Healed leg wound from spider bite, which patient reports happened "a few years ago." Tissue throughout is scarred, and site in indented ~0.6cm. No pain, no exudate, and no erythema noted. +4 pitting edema throughout bilateral LE, not cellulitic in appearance. Wound care does not need to follow this patient going forward. Advised cigar head puncher Annetta to reconsult PRN. Left Coccyx Pressure Injury Dressing Type: Open to Air Exudate Amount: None Exudate Characteristic(s): None Corazon Wound Tissue: Blanching, Intact Site Measurement - Head-to-Toe Length X Width X Depth (cm): [id number] Pressure Injury Present on Admit: Yes (previous injury, presently healed) Skin Integrity Problem Comment: Consult request to evaluate patient's sacrum and coccyx per patient report of a hisotry of a "bedsore" to this site. Upon assessment, there is a small area of scar tissue to the left of patient's coccyx in gluteal cleft, completely epithelialized with no open wound at this time. Because patient has a history of injury to this site, recommend proceeding with pressure-relieving precautions: turns q2, reposition in chair q1 w/ pressure-relieving cushion, and Accu-max pump on patient's mattress. Wound care does not need to follow this patient ongoing, and nursing is advised to reconsult PRN.
[2016-09-08 11:16] LABS: PLATELET ESTIMATE DECREASED (ADEQ)
--- NOTE | 2016-09-08 15:58 | HOSPPROG ---
Hospitalist Progress Note Assessment/Plan: #Decompensated cirrhosis: due to running out of medications. IV Lasix. Strict I/ Os. Will treat with IV lasix here. Therapeutic paracentesis once INR improved. Will likely have to give platelets for procedure #Mild hepatic encephalopathy: improved. COnt lactulose #Coagulopathy: cont vitamin K #Hypervolemic hyponatremia: cont diuresis #h/o alcohol abuse: states last drink 2 months ago #Chronic thrombocytopenia: due to cirrhosis. No active bleed #Hypokalemia: repleted #Macrocytic anemia: denies overt bleeding. H/H stable after transfusion. FOBT pending #Left coccyx pressure ulcer: present at admission. Wound care following #Diet: 2L fluid restriction #DVT ppx: SCDs #Disp: warrants inpatient admission with severely decompensated cirrhosis & volume overload, anemia. Cont lasix, serial labs Subjective: no acute events. Denies bleeding Objective: Vital Signs Temp Pulse Resp BP Pulse Ox 36.4 C 71 17 106/66 93 09/08/16 12:00 09/08/16 12:00 09/08/16 12:00 09/08/16 12:00 09/08/16 12:00 Laboratory Results 09/08/16 05:45 09/08/16 04:52 09/07/16 09/08/16 09/09/16 05:59 05:59 05:59 Intake Total 50 1750 Output Total 350 550 150 Balance -300 1200 -150 PT 41.8 SEC (12.0-15.0) H 09/08/16 04:52 INR 4.26 (0.83-1.16) H 09/08/16 04:52 - Physical Exam Constitutional: chronically ill appearing Eyes: icteric sclera Ears, Nose, Mouth, Throat: moist mucous membranes, hearing normal Cardiovascular: regular rate and rhythym, edema (+4 pitting edema to thighs) Respiratory: no respiratory distress Gastrointestinal: normoactive bowel sounds, distension (significant distension, no TTP, +BS) Genitourinary: no bladder fullness Skin: warm Musculoskeletal: full muscle strength Neurologic: AAOx3, CN II-XII Intact ICD10 Worksheet Patient Problems: Problems Problem Status Onset Ascites Acute 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
[2016-09-08 18:37] LABS: POTASSIUM 3.5 mEq/L (3.5-5.2)
[2016-09-08] MEDS ORDERED: POTASSIUM CL 20 MEQ TAB ONE (21:03)
[2016-09-09 05:05] LABS: HEMATOCRIT 23.7 % (40.0-51.0); HEMOGLOBIN 8.4 g/dL (13.7-17.5); LIPEMIA HEMOLYSIS FLAG 90 (0-99); MEAN CELL HEMOGLOBIN 39.4 pg (27.9-34.1); MEAN CELL HEMOGLOBIN CONCENTR. 35.4 g/dL (32.4-36.7); MEAN CELL VOLUME 111.3 fL (81.5-99.8); PLATELET CLUMPS FLAG 0 (0-99); RED BLOOD CELL COUNT 2.13 10^6/uL (4.40-6.38); RED CELL DISTRIBUTION WIDTH 18.5 % (11.5-15.2)
[2016-09-09 05:09] LABS: PLATELET COUNT 29 10^3/uL (150-400)
[2016-09-09 05:14] LABS: INR 4.21 (0.83-1.16); PROTIME(PATIENT) 41.4 SEC (12.0-15.0)
[2016-09-09 05:23] LABS: ALANINE AMINOTRANSFERASE 31 IU/L (21-72); ALBUMIN 1.9 g/dL (3.5-5.0); ALKALINE PHOSPHATASE 87 IU/L (38-126); ANION GAP 5 mEq/L (8-16); ASPARTATE AMINOTRANSFERASE 38 IU/L (17-59); BILIRUBIN,TOTAL 15.7 mg/dL (0.1-1.4); CALCIUM 7.9 mg/dL (8.5-10.4); CARBON DIOXIDE 22 mEq/l (22-31); CHLORIDE 102 mEq/L (97-110); CREATININE 0.8 mg/dL (0.7-1.3); GLOMERULAR FILTRATION RATE > 60; GLUCOSE 128 mg/dL (70-100); POTASSIUM 3.7 mEq/L (3.5-5.2); SODIUM 129 mEq/L (134-144); TOTAL PROTEIN 5.6 g/dL (6.3-8.2)
[2016-09-09 05:24] LABS: SPECIMEN ICTERUS 16
[2016-09-09 05:34] LABS: BILIRUBIN-CONJUGATED 9.5 mg/dL (0.0-0.5); BILIRUBIN-UNCONJUGATED 6.2 mg/dL (0.0-1.1)
[2016-09-09 05:47] LABS: PLATELET ESTIMATE DECREASED (ADEQ)
[2016-09-09] MEDS: CARVEDILOL 3.125 MG TAB PO SCH ×2 (08:21→19:18)
[2016-09-09] MEDS: FUROSEMIDE 40 MG/4 ML VIAL IVP SCH ×2 (08:22→15:37)
[2016-09-09] MEDS: LACTULOSE 20 GM/30 ML UDCUP PO SCH ×3 (08:23→21:43)
[2016-09-09] MEDS: PHYTONADIONE 2.5 MG/2.5 ML ORAL UDL PO SCH (09:44)
--- NOTE | 2016-09-09 10:35 | HOSPPROG ---
Hospitalist Progress Note Assessment/Plan: #Decompensated cirrhosis: due to running out of medications. IV Lasix. Strict I/ Os. Will treat with IV lasix here. Therapeutic paracentesis once INR improved. Will likely have to give platelets for procedure #Mild hepatic encephalopathy: improved. Cont lactulose #Coagulopathy: cont vitamin K #Hypervolemic hyponatremia: cont diuresis #h/o alcohol abuse: states last drink 2 months ago #Chronic thrombocytopenia: due to cirrhosis. No active bleed #Hypokalemia: repleted #Macrocytic anemia: denies overt bleeding. H/H stable after transfusion. FOBT pending #Left coccyx pressure ulcer: present at admission. Wound care following #Diet: 2L fluid restriction #DVT ppx: SCDs #Goals: Palliative care to meet with he and his today. I had an extensive conversation with him. His goal is to be able to get around on his own. He needs assistance with most ADLs. I expressed that he will not likely get back to that level of strength. Spending time with his grandkids is important to him. He understands that only treatment at this point is to help alleviate edema , but disease not curable. #Disp: warrants inpatient admission with severely decompensated cirrhosis & volume overload, anemia. 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
[2016-09-09] MEDS ORDERED: FUROSEMIDE 40 MG/4 ML VIAL IVP SCH (16:51)
[2016-09-09] MEDS ORDERED: POTASSIUM CL 10 MEQ TAB PO ONE (21:07)
[2016-09-09] MEDS ORDERED: FUROSEMIDE 20 MG/2 ML VIAL IVP ONE (21:28)
[2016-09-10 04:57] LABS: INR 4.42 (0.83-1.16)
[2016-09-10 05:07] LABS: ALANINE AMINOTRANSFERASE 33 IU/L (21-72); ALBUMIN 1.9 g/dL (3.5-5.0); ALKALINE PHOSPHATASE 97 IU/L (38-126); ANION GAP 3 mEq/L (8-16); ASPARTATE AMINOTRANSFERASE 45 IU/L (17-59); BILIRUBIN,TOTAL 15.9 mg/dL (0.1-1.4); CALCIUM 7.8 mg/dL (8.5-10.4); CARBON DIOXIDE 24 mEq/l (22-31); CHLORIDE 102 mEq/L (97-110); CREATININE 0.9 mg/dL (0.7-1.3); GLOMERULAR FILTRATION RATE > 60; GLUCOSE 131 mg/dL (70-100); POTASSIUM 3.2 mEq/L (3.5-5.2); SODIUM 129 mEq/L (134-144); TOTAL PROTEIN 5.8 g/dL (6.3-8.2)
[2016-09-10 05:12] LABS: SPECIMEN ICTERUS 17
[2016-09-10 05:18] LABS: BILIRUBIN-CONJUGATED 9.2 mg/dL (0.0-0.5); BILIRUBIN-UNCONJUGATED 6.7 mg/dL (0.0-1.1)
[2016-09-10] MEDS: PHYTONADIONE 2.5 MG/2.5 ML ORAL UDL PO SCH (09:25)
[2016-09-10] MEDS: CARVEDILOL 3.125 MG TAB PO SCH ×2 (09:25→18:24)
[2016-09-10] MEDS: LACTULOSE 20 GM/30 ML UDCUP PO SCH ×3 (09:25→19:52)
[2016-09-10] MEDS: FUROSEMIDE 40 MG/4 ML VIAL IVP SCH ×2 (09:25→15:52)
[2016-09-10] MEDS ORDERED: POTASSIUM CL 10 MEQ TAB ONE (14:47)
[2016-09-10] MEDS ORDERED: POTASSIUM CL 20 MEQ TAB PO ONE (15:30)
--- NOTE | 2016-09-10 16:47 | HOSPPROG ---
Hospitalist Progress Note Assessment/Plan: assessment: 48-year-old male presents with acute decompensated cirrhosis / liver failure complicated by hepatic encephalopathy, coagulopathy, transaminitis Plan: # Decompensated cirrhosis/acute liver failure: 2/2 chronic alcohol use, acute decompensation 2/2 running out of medications - remains significantly volume overloaded - cont IV Lasix, add aldactone - cont Strict I/Os - counseled patient that he should get therapeutic para once INR improved, risk > benefit doing para now # Hepatic encephalopathy: acute, mild, NH4 75 - no coma - cont sched lactulose # Coagulopathy: cont vitamin K, cont monitor INR # Hypervolemic hyponatremia: acute, cont diuresis and monitor Na # h/o alcohol abuse: states last drink 6 months ago # Chronic thrombocytopenia: due to cirrhosis, no bleeding # Hypokalemia: repleted, monitor w/ aldactone # Macrocytic anemia: denies overt bleeding. H/H stable after transfusion. FOBT pending # Left coccyx pressure injury: present at admission, appreciate wound care Diet. Na diet Ppx. Currently naturally anticoagulated Code. Full Dispo. ADD uncertain, remains very hypervolemic and on IV diuretics Subjective: counseled patient regarding his diagnosis, need for ongoing diuresis as opposed to paracentesis Objective: Vital Signs Temp Pulse Resp BP Pulse Ox 36.4 C 64 18 104/59 L 97 09/10/16 11:26 09/10/16 11:26 09/10/16 11:26 09/10/16 11:26 09/10/16 11:26 Laboratory Results 09/09/16 04:30 09/10/16 04:25 09/09/16 09/10/16 09/11/16 05:59 05:59 05:59 Intake Total 2009 1400 653 Output Total 300 900 525 Balance 1710 500 128 PT 43.0 SEC (12.0-15.0) H 09/10/16 04:25 INR 4.42 (0.83-1.16) H 09/10/16 04:25 - Time Spent With Patient Time Spent with Patient: greater than 35 minutes Time Spent with Patient: Greater than 35 minutes spent on this patients care, greater than 50% of time spent counseling, educating, and coordinating care regarding the above mentioned plan. 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
[2016-09-10] MEDS: SPIRONOLACTONE 25 MG TAB PO SCH (18:26)
[2016-09-11 06:29] LABS: ALANINE AMINOTRANSFERASE 26 IU/L (21-72); ALKALINE PHOSPHATASE 89 IU/L (38-126); ANION GAP 7 mEq/L (8-16); ASPARTATE AMINOTRANSFERASE 40 IU/L (17-59); BILIRUBIN,TOTAL 14.4 mg/dL (0.1-1.4); CALCIUM 7.8 mg/dL (8.5-10.4); CARBON DIOXIDE 23 mEq/l (22-31); CHLORIDE 100 mEq/L (97-110); GLOMERULAR FILTRATION RATE > 60; GLUCOSE 141 mg/dL (70-100); MAGNESIUM 1.5 mg/dL (1.6-2.3); POTASSIUM 3.2 mEq/L (3.5-5.2); SODIUM 130 mEq/L (134-144); TOTAL PROTEIN 5.3 g/dL (6.3-8.2)
[2016-09-11 06:42] LABS: SPECIMEN ICTERUS 15
[2016-09-11 06:49] LABS: BILIRUBIN-UNCONJUGATED 6.4 mg/dL (0.0-1.1)
[2016-09-11] MEDS: FUROSEMIDE 40 MG/4 ML VIAL IVP SCH ×2 (07:58→14:52)
[2016-09-11] MEDS: CARVEDILOL 3.125 MG TAB PO SCH ×2 (07:58→16:24)
[2016-09-11] MEDS: SPIRONOLACTONE 25 MG TAB PO SCH (07:59)
[2016-09-11] MEDS: LACTULOSE 20 GM/30 ML UDCUP PO SCH ×3 (07:59→20:51)
[2016-09-11] MEDS: PHYTONADIONE 2.5 MG/2.5 ML ORAL UDL PO SCH (08:08)
[2016-09-11] MEDS ORDERED: POTASSIUM CL 20 MEQ TAB PO ONE (08:44)
[2016-09-11] MEDS ORDERED: MAGNESIUM SULF 2 GM/WATER 50 ML IV ONE (09:47)
[2016-09-11 10:04] LABS: % IMMATURE GRANULYOCYTES 1.2 % (0.0-1.1); ABSOLUTE IMMATURE GRANULOCYTES 0.05 10^3/uL (0.00-0.10); ADD DIFF? NO; ADD MORPH? NO; ADD SCAN? YES; ATYPICAL LYMPHOCYTE FLAG 0 (0-99); FRAGMENT RBC FLAG 0 (0-99); HEMATOCRIT 24.1 % (40.0-51.0); HEMOGLOBIN 8.4 g/dL (13.7-17.5); LEFT SHIFT FLG 10 (0-99); LIPEMIA HEMOLYSIS FLAG 90 (0-99); MEAN CELL HEMOGLOBIN 39.1 pg (27.9-34.1); MEAN CELL HEMOGLOBIN CONCENTR. 34.9 g/dL (32.4-36.7); MEAN CELL VOLUME 112.1 fL (81.5-99.8); PLATELET CLUMPS FLAG 20 (0-99); RED BLOOD CELL COUNT 2.15 10^6/uL (4.40-6.38); RED CELL DISTRIBUTION WIDTH 18.1 % (11.5-15.2)
[2016-09-11 10:07] LABS: INR 4.44 (0.83-1.16); PROTIME(PATIENT) 43.2 SEC (12.0-15.0)
[2016-09-11 10:35] LABS: PLATELET COUNT 29 10^3/uL (150-400)
[2016-09-11 11:18] LABS: SCAN POSITIVE
[2016-09-11 11:30] LABS: PLATELET ESTIMATE DECREASED (ADEQ); SCHISTOCYTES 1+
[2016-09-11 11:32] LABS: ACANTHOCYTES 3+; MACROCYTES 2+; POLYCHROMASIA 1+; TOXIC GRANULATION PRESENT
[2016-09-11] MEDS ORDERED: MBX SOLN 30 ML BOTTLE PO PRN (11:45)
[2016-09-11] MEDS ORDERED: FAMOTIDINE 20 MG TAB PO PRN (11:45)
--- NOTE | 2016-09-11 15:07 | HOSPPROG ---
Hospitalist Progress Note Assessment/Plan: assessment: 48-year-old male presents with acute decompensated cirrhosis/ liver failure complicated by hepatic encephalopathy, coagulopathy, transaminitis Plan: # Decompensated cirrhosis/acute liver failure: 2/2 chronic alcohol use, acute decompensation 2/2 running out of medications - remains significantly volume overloaded - cont IV Lasix, added aldactone - cont bblocker presumably for varices? will review outside records - cont Strict I/Os - counseled patient that he should get therapeutic para once INR improved, risk > benefit doing para now # Hepatic encephalopathy: acute, mild, NH4 75 - no coma - cont sched lactulose # Coagulopathy: cont vitamin K, cont monitor INR # Hypervolemic hyponatremia: acute, cont diuresis and monitor Na # h/o alcohol abuse: states last drink 6 months ago # Chronic thrombocytopenia: due to cirrhosis, no bleeding # Hypokalemia: repleted, monitor w/ aldactone # Macrocytic anemia: denies overt bleeding. H/H stable after transfusion. FOBT pending # Left coccyx pressure injury: present at admission, appreciate wound care Diet. Na diet Ppx. Currently naturally anticoagulated Code. No CPR, palliative consult appreciated Dispo. ADD uncertain, remains very hypervolemic and on IV diuretics Subjective: patient reports that he still feels bloated, legs are heavy, he would like to have a paracentesis performed Objective: Vital Signs Temp Pulse Resp BP Pulse Ox 36.7 C 68 16 100/57 L 98 09/11/16 11:14 09/11/16 11:14 09/11/16 11:14 09/11/16 11:14 09/11/16 11:14 Laboratory Results 09/11/16 09:45 09/11/16 04:46 09/10/16 09/11/16 09/12/16 05:59 05:59 05:59 Intake Total 1400 1393 Output Total 900 1100 Balance 500 293 PT 43.2 SEC (12.0-15.0) H 09/11/16 09:45 INR 4.44 (0.83-1.16) H 09/11/16 09:45 - Physical Exam Constitutional: no apparent distress, not in pain, chronically ill appearing, obese, uncomfortable Eyes: PERRL, EOMI, icteric sclera Cardiovascular: systolic murmur ( 2/6 at all valve location), edema ( 2+ bilateral lower extremity), No irregularly irregular, No tachycardia Respiratory: no respiratory distress, no rales or rhonchi, clear to auscultation Gastrointestinal: ascites, distension ( moderate), other ( umbilical hernia), No tenderness, No guarding Neurologic: AAOx3 Psychiatric: not anxious, not encephalopathic, other ( speech somewhat delayed) , No agitated ICD10 Worksheet Patient Problems: Problems Problem Status Onset Cellulitis Acute 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
--- NOTE | 2016-09-11 16:40 | PDPCPN ---
Palliative Care Progress Note Assessment/Plan: Referring provider: Dr Gardner Reason for consult: Complex medical decision making Symptom control HPI: Subhash Hernandez (Kenny) is a 56 yo PMH hep C, ETOH, and ESLD admitted to the hospital for increased weakness and lower leg edema. Recent hospitalization 2016 for symptoms related to his ESLD and discharged home. He ran out of medications 2 weeks ago and has had increasing edema since. Also with significant ascites unable to have paracentesis due to INR 4.4 and plt 29. Palliative care consulted for complex medical decision making. Met at the bedside this afternoon with Heron and Nisha. Heron shared that he didn't realize he had end stage liver disease until this hospitalization. He said he has been through trials before and has a strong pietro with God. He understands his life is limited due to his liver disease and potentially limited to months-years. He states God still has plans and work for him and firmly believes that God will let him know when it is time. He states quality of life to him is being able to spend time with his family. He has not seen his older son and grandchildren in 3-4 years and is hoping to be able to spend quality time with them this summer. He is hoping for some medical management to improve his quality as well as extend his life some. He stated if he were not able to communicate and interact with the world then he would not have a good quality of life and would not want life prolonging measures. We discussed code status and he stated if there is no hope to return to a good baseline quality of life then he would not want interventions. He would not want CPR but would consider ICU and intubation if needed for short term. He would like to make sure he is connected with a mailhouse operator before discharge so he can continue with medical interventions for his ESLD. Assessment: Physical: - Pain: occasion discomfort due to edema - on lasix - frequent position changes. - Weakness: - PT/OT - lives on the second floor of an apartment building and has to use stairs to access his home Emotional/psychological: has good pietro and supported by family. Advanced Care Planning: Is patient decisional?: Yes Code Status: No CPR (DNR, full treatment) MD LUCAS: Nisha is MDPOA. Plan: PC will follow as needed for goals of care. Continued medical intervention is in line with his goals. Subjective: I'm hoping to be able to move around more Objective: Social History: to Nisha for 34 years. Has 3 children, 1 son in [place] from a previous marriage. Enjoys spending time with his family and going on fishing trips. Medication list reviewed ROS: General: fatigue, weakness ENT: negative Resp: negative GI: ascites : incontinence at times MS: negative Skin: negative Neuro: negative Psych: negative Functional assessment: PPS: 40% Functional status: needs assistance with ADls Vital Signs Temp Pulse Resp BP Pulse Ox 36.6 C 67 16 100/65 90 L 09/11/16 15:25 09/11/16 15:25 09/11/16 15:25 09/11/16 15:25 09/11/16 15:25 Laboratory Results 09/11/16 09:45 09/11/16 04:46 09/10/16 09/11/16 09/12/16 05:59 05:59 05:59 Intake Total 1400 1393 Output Total 900 1100 Balance 500 293 PT 43.2 SEC (12.0-15.0) H 09/11/16 09:45 INR 4.44 (0.83-1.16) H 09/11/16 09:45 Physical Exam - Physical Exam General Appearance: alert, no apparent distress Respiratory: No respiratory distress, No accessory muscle use Skin: warm/dry, jaundice Extremities: pedal edema (up to scrotum ) Neuro/Psych: alert, oriented x 3 ICD10 Worksheet Patient Problems: Problems Problem Status Onset Ascites Acute 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
[2016-09-11] MEDS: CALCIUM CARBONATE 500 MG CHEWABLE TAB PO PRN (20:51)
[2016-09-12 05:08] LABS: ADD DIFF? NO; ADD MORPH? NO; ATYPICAL LYMPHOCYTE FLAG 0 (0-99); FRAGMENT RBC FLAG 0 (0-99); LIPEMIA HEMOLYSIS FLAG 90 (0-99); PLATELET CLUMPS FLAG 0 (0-99)
[2016-09-12 05:20] LABS: INR 4.32 (0.83-1.16); PROTIME(PATIENT) 42.2 SEC (12.0-15.0)
[2016-09-12 05:36] LABS: % IMMATURE GRANULYOCYTES 0.6 % (0.0-1.1); ABSOLUTE IMMATURE GRANULOCYTES 0.02 10^3/uL (0.00-0.10); ADD SCAN? NO; HEMATOCRIT 26.1 % (40.0-51.0); HEMOGLOBIN 8.9 g/dL (13.7-17.5); LEFT SHIFT FLG 0 (0-99); MEAN CELL HEMOGLOBIN 38.7 pg (27.9-34.1); MEAN CELL HEMOGLOBIN CONCENTR. 34.1 g/dL (32.4-36.7); MEAN CELL VOLUME 113.5 fL (81.5-99.8); MEAN PLATELET VOLUME 10.7 fL (8.7-11.7); RED CELL DISTRIBUTION WIDTH 18.1 % (11.5-15.2)
[2016-09-12 05:50] LABS: PLATELET COUNT 27 10^3/uL (150-400)
[2016-09-12 06:10] LABS: ALANINE AMINOTRANSFERASE 25 IU/L (21-72); ALBUMIN 2.1 g/dL (3.5-5.0); ALKALINE PHOSPHATASE 117 IU/L (38-126); ANION GAP 5 mEq/L (8-16); ASPARTATE AMINOTRANSFERASE 65 IU/L (17-59); BILIRUBIN,TOTAL 14.2 mg/dL (0.1-1.4); CALCIUM 7.9 mg/dL (8.5-10.4); CARBON DIOXIDE 22 mEq/l (22-31); CHLORIDE 103 mEq/L (97-110); GLOMERULAR FILTRATION RATE > 60; GLUCOSE 144 mg/dL (70-100); MAGNESIUM 1.8 mg/dL (1.6-2.3); POTASSIUM 3.6 mEq/L (3.5-5.2); SODIUM 130 mEq/L (134-144)
[2016-09-12 06:15] LABS: SPECIMEN ICTERUS 15
[2016-09-12 06:22] LABS: PLATELET ESTIMATE DECREASED (ADEQ)
[2016-09-12 06:29] LABS: BILIRUBIN-CONJUGATED 7.7 mg/dL (0.0-0.5); BILIRUBIN-UNCONJUGATED 6.5 mg/dL (0.0-1.1)
[2016-09-12] MEDS: CARVEDILOL 3.125 MG TAB PO SCH ×2 (09:37→17:09)
[2016-09-12] MEDS: BUMETANIDE 1 MG/4 ML VIAL IVP SCH ×2 (09:38→17:09)
[2016-09-12] MEDS: PHYTONADIONE 2.5 MG/2.5 ML ORAL UDL PO SCH (09:39)
[2016-09-12] MEDS: SPIRONOLACTONE 25 MG TAB PO SCH (09:39)
[2016-09-12] MEDS: LACTULOSE 20 GM/30 ML UDCUP PO SCH ×3 (09:39→22:04)
--- NOTE | 2016-09-12 17:54 | HOSPPROG ---
Hospitalist Progress Note Assessment/Plan: assessment: 48-year-old male presents with acute decompensated cirrhosis/ liver failure complicated by hepatic encephalopathy, coagulopathy, transaminitis Plan: # Decompensated cirrhosis/acute liver failure: 2/2 chronic alcohol use, acute decompensation 2/2 running out of medications - remains significantly volume overloaded - adjusted to bumex (given low albumin) and cont aldactone - cont bblocker for grade I varices (reviewed outside records, including previous consult by Dr. Eng) - cont Strict I/Os - requires ppx CTX x 5 days while hospitalized # Hepatic encephalopathy: acute, mild, NH4 75 - no coma - cont sched lactulose # Coagulopathy: cont vitamin K, cont monitor INR # Hypervolemic hyponatremia: acute, cont diuresis and monitor Na # h/o alcohol abuse: states last drink 6 months ago # Chronic thrombocytopenia: due to cirrhosis, no bleeding # Hypokalemia: repleted, monitor w/ aldactone # Macrocytic anemia: denies overt bleeding. H/H stable after transfusion. FOBTneg # Left coccyx pressure injury: present at admission, appreciate wound care Diet. Na diet Ppx. Currently naturally anticoagulated Code. No CPR, palliative consult appreciated Dispo. ADD uncertain, remains very hypervolemic and on IV diuretics Subjective: patient reports urinary frequency Objective: Vital Signs Temp Pulse Resp BP Pulse Ox 36.8 C 71 16 104/59 L 90 L 09/12/16 15:31 09/12/16 15:31 09/12/16 15:31 09/12/16 15:31 09/12/16 15:31 Laboratory Results 09/12/16 04:55 09/12/16 04:55 09/11/16 09/12/16 09/13/16 05:59 05:59 05:59 Intake Total 1393 700 Output Total 1100 301 400 Balance 293 399 -400 PT 42.2 SEC (12.0-15.0) H 09/12/16 04:55 INR 4.32 (0.83-1.16) H 09/12/16 04:55 - Physical Exam Constitutional: not in pain, chronically ill appearing, obese, No uncomfortable Eyes: PERRL, EOMI, icteric sclera Cardiovascular: systolic murmur (II/ at all valves), edema (2+ bilat LE), No irregularly irregular, No tachycardia Respiratory: no respiratory distress, no rales or rhonchi, clear to auscultation Gastrointestinal: normoactive bowel sounds, ascites, distension (moderate), other (non-tender umbilical hernia) Neurologic: AAOx3, No asterixes, No facial droop Psychiatric: interacting appropriately, not anxious, not encephalopathic, thought process linear ICD10 Worksheet Patient Problems: Problems Problem Status Onset Cellulitis Acute 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
[2016-09-13] MEDS: CALCIUM CARBONATE 500 MG CHEWABLE TAB PO PRN (01:16)
[2016-09-13 05:23] LABS: HEMATOCRIT 25.6 % (40.0-51.0); HEMOGLOBIN 8.9 g/dL (13.7-17.5); LIPEMIA HEMOLYSIS FLAG 90 (0-99); MEAN CELL HEMOGLOBIN 39.4 pg (27.9-34.1); MEAN CELL HEMOGLOBIN CONCENTR. 34.8 g/dL (32.4-36.7); MEAN CELL VOLUME 113.3 fL (81.5-99.8); PLATELET CLUMPS FLAG 0 (0-99); RED BLOOD CELL COUNT 2.26 10^6/uL (4.40-6.38); RED CELL DISTRIBUTION WIDTH 17.7 % (11.5-15.2)
[2016-09-13 05:35] LABS: PLATELET COUNT 30 10^3/uL (150-400)
[2016-09-13 05:39] LABS: ALANINE AMINOTRANSFERASE 33 IU/L (21-72); ALBUMIN 1.9 g/dL (3.5-5.0); ALKALINE PHOSPHATASE 90 IU/L (38-126); ANION GAP 6 mEq/L (8-16); ASPARTATE AMINOTRANSFERASE 40 IU/L (17-59); BILIRUBIN,TOTAL 15.5 mg/dL (0.1-1.4); CALCIUM 7.8 mg/dL (8.5-10.4); CARBON DIOXIDE 24 mEq/l (22-31); CHLORIDE 102 mEq/L (97-110); CREATININE 0.9 mg/dL (0.7-1.3); GLOMERULAR FILTRATION RATE > 60; GLUCOSE 144 mg/dL (70-100); MAGNESIUM 1.7 mg/dL (1.6-2.3); POTASSIUM 2.9 mEq/L (3.5-5.2); SODIUM 132 mEq/L (134-144); TOTAL PROTEIN 5.8 g/dL (6.3-8.2)
[2016-09-13 05:40] LABS: SPECIMEN ICTERUS 16
[2016-09-13 05:42] LABS: INR 4.5 (0.83-1.16); PROTIME(PATIENT) 43.6 SEC (12.0-15.0)
[2016-09-13 05:46] LABS: BILIRUBIN-CONJUGATED 8.6 mg/dL (0.0-0.5); BILIRUBIN-UNCONJUGATED 6.9 mg/dL (0.0-1.1)
[2016-09-13 06:17] LABS: PLATELET ESTIMATE DECREASED (ADEQ)
[2016-09-13] MEDS ORDERED: POTASSIUM CL 20 MEQ TAB PO ONE ×3 (08:38→16:15)
[2016-09-13] MEDS ORDERED: MAGNESIUM SULF 1 GM/DEXTROSE 100 ML IV ONE (08:38)
[2016-09-13] MEDS: LACTULOSE 20 GM/30 ML UDCUP PO SCH ×3 (09:21→21:32)
[2016-09-13] MEDS: SPIRONOLACTONE 25 MG TAB PO SCH (09:22)
[2016-09-13] MEDS: POTASSIUM CL 20 MEQ TAB PO SCH (09:39)
[2016-09-13] MEDS: BUMETANIDE 1 MG/4 ML VIAL IVP SCH ×2 (09:40→16:15)
[2016-09-13] MEDS: CARVEDILOL 3.125 MG TAB PO SCH ×2 (10:03→18:33)
[2016-09-13] MEDS: PHYTONADIONE 2.5 MG/2.5 ML ORAL UDL PO SCH (11:45)
[2016-09-13] MEDS ORDERED: BUMETANIDE 1 MG/4 ML VIAL IVP ONE (17:04)
--- NOTE | 2016-09-13 17:04 | HOSPPROG ---
Hospitalist Progress Note Assessment/Plan: assessment: 48-year-old male presents with acute decompensated cirrhosis/ liver failure complicated by hepatic encephalopathy, coagulopathy, transaminitis Plan: # Decompensated cirrhosis/acute liver failure: 2/2 chronic alcohol use, acute decompensation 2/2 running out of medications - remains significantly volume overloaded - increased bumes today (given low albumin) and cont aldactone - cont bblocker for grade I varices (reviewed outside records, including previous consult by Dr. Eng) - cont Strict I/Os - requires ppx CTX x 5 days while hospitalized # Hepatic encephalopathy: acute, mild, NH4 75 - no coma - cont sched lactulose # Coagulopathy: cont vitamin K, cont monitor INR # Hypervolemic hyponatremia: acute, cont diuresis and monitor Na # h/o alcohol abuse: states last drink 6 months ago # Chronic thrombocytopenia: due to cirrhosis, no bleeding # Hypokalemia: replete aggressively today, monitor w/ aldactone # Macrocytic anemia: denies overt bleeding. H/H stable after transfusion. FOBTneg # Left coccyx pressure injury: present at admission, appreciate wound care Diet. Na diet Ppx. Currently naturally anticoagulated Code. No CPR, palliative consult appreciated Dispo. ADD uncertain, remains very hypervolemic and on IV diuretics Subjective: Patient reports he is moving his bowels, he is urinating Objective: Vital Signs Temp Pulse Resp BP Pulse Ox 35.9 C L 66 18 113/76 96 09/13/16 16:00 09/13/16 16:00 09/13/16 16:00 09/13/16 16:00 09/13/16 16:00 Laboratory Results 09/13/16 05:03 09/13/16 05:03 09/12/16 09/13/16 09/14/16 05:59 05:59 05:59 Intake Total 700 1000 Output Total 301 550 600 Balance 399 450 -600 PT 43.6 SEC (12.0-15.0) H 09/13/16 05:03 INR 4.50 (0.83-1.16) H 09/13/16 05:03 - Physical Exam Constitutional: no apparent distress, not in pain, chronically ill appearing, other (Visibly jaundiced), No uncomfortable Eyes: PERRL, EOMI, icteric sclera Cardiovascular: systolic murmur (2/6 systolic murmur at the apex), edema (2+ bilateral lower extremity edema), No irregularly irregular, No tachycardia Respiratory: no respiratory distress, no rales or rhonchi, clear to auscultation Gastrointestinal: normoactive bowel sounds, ascites, distension (Moderately), No tenderness Neurologic: AAOx3, sensation intact bilaterally, No asterixes (Not tremulous) Psychiatric: not anxious, not encephalopathic, thought process linear, other ( Delayed verbal responses), No agitated ICD10 Worksheet Patient Problems: Problems Problem Status Onset Cellulitis Acute 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
[2016-09-13 19:24] LABS: POTASSIUM 3.2 mEq/L (3.5-5.2)
[2016-09-14 05:35] LABS: HEMATOCRIT 25.5 % (40.0-51.0); HEMOGLOBIN 8.7 g/dL (13.7-17.5); LIPEMIA HEMOLYSIS FLAG 90 (0-99); MEAN CELL HEMOGLOBIN CONCENTR. 34.1 g/dL (32.4-36.7); MEAN CELL VOLUME 114.3 fL (81.5-99.8); PLATELET CLUMPS FLAG 0 (0-99); RED BLOOD CELL COUNT 2.23 10^6/uL (4.40-6.38); RED CELL DISTRIBUTION WIDTH 17.3 % (11.5-15.2)
[2016-09-14 05:38] LABS: PLATELET COUNT 25 10^3/uL (150-400)
[2016-09-14 05:41] LABS: PLATELET ESTIMATE DECREASED (ADEQ)
[2016-09-14 05:43] LABS: ALANINE AMINOTRANSFERASE 27 IU/L (21-72); ALKALINE PHOSPHATASE 85 IU/L (38-126); ANION GAP 6 mEq/L (8-16); ASPARTATE AMINOTRANSFERASE 42 IU/L (17-59); BILIRUBIN,TOTAL 15.5 mg/dL (0.1-1.4); CALCIUM 7.7 mg/dL (8.5-10.4); CARBON DIOXIDE 26 mEq/l (22-31); CHLORIDE 103 mEq/L (97-110); CREATININE 0.9 mg/dL (0.7-1.3); GLOMERULAR FILTRATION RATE > 60; GLUCOSE 152 mg/dL (70-100); POTASSIUM 3.1 mEq/L (3.5-5.2); SODIUM 135 mEq/L (134-144); TOTAL PROTEIN 5.5 g/dL (6.3-8.2)
[2016-09-14 05:45] LABS: INR 4.38 (0.83-1.16); PROTIME(PATIENT) 42.7 SEC (12.0-15.0)
[2016-09-14 05:54] LABS: SPECIMEN ICTERUS 16
[2016-09-14 06:15] LABS: BILIRUBIN-CONJUGATED 8.3 mg/dL (0.0-0.5); BILIRUBIN-UNCONJUGATED 7.2 mg/dL (0.0-1.1)
[2016-09-14] MEDS ORDERED: MAGNESIUM SULF 1 GM/DEXTROSE 100 ML IV ONE (08:41)
[2016-09-14] MEDS ORDERED: POTASSIUM CL 20 MEQ TAB PO ONE (08:41)
[2016-09-14] MEDS: LACTULOSE 20 GM/30 ML UDCUP PO SCH ×3 (09:42→22:06)
[2016-09-14] MEDS: BUMETANIDE 1 MG/4 ML VIAL IVP SCH ×3 (09:45→16:04)
[2016-09-14] MEDS: CARVEDILOL 3.125 MG TAB PO SCH ×2 (09:58→18:25)
[2016-09-14] MEDS: PHYTONADIONE 2.5 MG/2.5 ML ORAL UDL PO SCH (09:58)
[2016-09-14] MEDS: POTASSIUM CL 20 MEQ TAB PO SCH (10:00)
[2016-09-14] MEDS: SPIRONOLACTONE 25 MG TAB PO SCH (10:01)
--- NOTE | 2016-09-14 12:47 | HOSPPROG ---
Hospitalist Progress Note Assessment/Plan: assessment: 48-year-old male presents with acute decompensated cirrhosis/ liver failure complicated by hepatic encephalopathy, coagulopathy, transaminitis Plan: # Decompensated cirrhosis/acute liver failure: 2/2 chronic alcohol use, acute decompensation 2/2 running out of medications - remains significantly volume overloaded - increased bumex to 2mg IV bid, increase aldactone to 50mg daily tomorrow - cont bblocker for grade I varices - cont Strict I/Os - requires ppx CTX x 5 days while hospitalized, D#4 - counseled patient re: high risk of mortality and possibility that his condition may not improve, will definitely require SNF - patient[place] [facility] [place], and he understands he will require SNF in order to be physically well enough to do so # Hepatic encephalopathy: acute, mild, NH4 75 - no coma - cont sched lactulose # Coagulopathy: cont vitamin K, cont monitor INR # Hypervolemic hyponatremia: acute, cont diuresis and monitor Na # h/o alcohol abuse: states last drink 6 months ago # Chronic thrombocytopenia: due to cirrhosis, no bleeding # Hypokalemia: replete aggressively today, monitor w/ aldactone # Macrocytic anemia: denies overt bleeding. H/H stable after transfusion. FOBTneg # Left coccyx pressure injury: present at admission, appreciate wound care - adding lidoderm patch Diet. Na diet Ppx. Currently naturally anticoagulated Code. No CPR, palliative consult appreciated Dispo. ADD uncertain, remains very hypervolemic and on IV diuretics Subjective: Counseled patient regarding the severity of end-stage liver disease in the possibility that he may not experience recovery Objective: Vital Signs Temp Pulse Resp BP Pulse Ox 36.8 C 67 18 107/65 95 09/14/16 11:20 09/14/16 11:20 09/14/16 11:20 09/14/16 11:20 09/14/16 11:20 Laboratory Results 09/14/16 05:21 09/14/16 05:21 09/13/16 09/14/16 09/15/16 05:59 05:59 05:59 Intake Total 1000 1080 Output Total 550 2200 800 Balance 450 -1120 -800 PT 42.7 SEC (12.0-15.0) H 09/14/16 05:21 INR 4.38 (0.83-1.16) H 09/14/16 05:21 - Time Spent With Patient Time Spent with Patient: greater than 35 minutes Time Spent with Patient: Greater than 35 minutes spent on this patients care, greater than 50% of time spent counseling, educating, and coordinating care regarding the above mentioned plan. 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
[2016-09-14] MEDS: POTASSIUM Cl (KCl) 100 ML IV SCH ×2 (15:08→18:24)
[2016-09-14] MEDS: ONDANSETRON DISINTEGRATING 4 MG TAB PO PRN (15:48)
[2016-09-14] MEDS: LIDOCAINE 5% 1 EA PATCH TD SCH (15:58)
[2016-09-14] MEDS ORDERED: BUMETANIDE 1 MG/4 ML VIAL IVP SCH (15:59)
[2016-09-14] MEDS ORDERED: POTASSIUM Cl (KCl) 100 ML IV SCH (18:30)
[2016-09-15] MEDS: PATCH REMOVAL 1 EA PATCH TD SCH ×2 (03:36→20:25)
[2016-09-15] MEDS ORDERED: traMADol 50 MG TAB PO ONE (03:48)
[2016-09-15 05:39] LABS: HEMATOCRIT 25.3 % (40.0-51.0); HEMOGLOBIN 8.7 g/dL (13.7-17.5); LIPEMIA HEMOLYSIS FLAG 90 (0-99); MEAN CELL HEMOGLOBIN 39.2 pg (27.9-34.1); MEAN CELL HEMOGLOBIN CONCENTR. 34.4 g/dL (32.4-36.7); PLATELET CLUMPS FLAG 10 (0-99); RED BLOOD CELL COUNT 2.22 10^6/uL (4.40-6.38); RED CELL DISTRIBUTION WIDTH 16.8 % (11.5-15.2)
[2016-09-15 05:45] LABS: INR 4.26 (0.83-1.16); PROTIME(PATIENT) 41.8 SEC (12.0-15.0)
[2016-09-15 05:50] LABS: PLATELET COUNT 31 10^3/uL (150-400)
[2016-09-15 05:58] LABS: ALANINE AMINOTRANSFERASE 30 IU/L (21-72); ALKALINE PHOSPHATASE 116 IU/L (38-126); ANION GAP 5 mEq/L (8-16); ASPARTATE AMINOTRANSFERASE 48 IU/L (17-59); BILIRUBIN,TOTAL 14.2 mg/dL (0.1-1.4); CALCIUM 7.6 mg/dL (8.5-10.4); CARBON DIOXIDE 26 mEq/l (22-31); CHLORIDE 102 mEq/L (97-110); CREATININE 0.9 mg/dL (0.7-1.3); GLOMERULAR FILTRATION RATE > 60; GLUCOSE 150 mg/dL (70-100); MAGNESIUM 1.7 mg/dL (1.6-2.3); POTASSIUM 3.2 mEq/L (3.5-5.2); SODIUM 133 mEq/L (134-144); TOTAL PROTEIN 5.8 g/dL (6.3-8.2)
[2016-09-15 05:59] LABS: SPECIMEN ICTERUS 15
[2016-09-15 06:05] LABS: BILIRUBIN-CONJUGATED 8.5 mg/dL (0.0-0.5); BILIRUBIN-UNCONJUGATED 5.7 mg/dL (0.0-1.1)
[2016-09-15 06:13] LABS: PLATELET ESTIMATE DECREASED (ADEQ)
[2016-09-15] MEDS ORDERED: MAGNESIUM SULF 1 GM/DEXTROSE 100 ML IV ONE (08:47)
[2016-09-15] MEDS: CARVEDILOL 3.125 MG TAB PO SCH ×2 (08:50→18:26)
[2016-09-15] MEDS: POTASSIUM CL 20 MEQ TAB PO SCH (08:51)
[2016-09-15] MEDS: LACTULOSE 20 GM/30 ML UDCUP PO SCH ×3 (08:51→20:24)
[2016-09-15] MEDS: SPIRONOLACTONE 25 MG TAB PO SCH (08:52)
[2016-09-15] MEDS: ONDANSETRON DISINTEGRATING 4 MG TAB PO PRN (09:03)
[2016-09-15] MEDS: ONDANSETRON 4 MG/2 ML VIAL IVP PRN ×2 (09:07→15:05)
[2016-09-15] MEDS: BUMETANIDE 1 MG/4 ML VIAL IVP SCH ×2 (09:09→15:22)
[2016-09-15] MEDS: PHYTONADIONE 2.5 MG/2.5 ML ORAL UDL PO SCH (09:11)
[2016-09-15] MEDS: LIDOCAINE 5% 1 EA PATCH TD SCH (09:14)
[2016-09-15] MEDS ORDERED: K PHOS 15 MMOL in D5W 250 ML IV ONE (10:50)
[2016-09-15] MEDS: POTASSIUM Cl (KCl) 100 ML IV SCH ×4 (11:54→17:24)
--- NOTE | 2016-09-15 13:42 | HOSPPROG ---
Hospitalist Progress Note Assessment/Plan: assessment: 48-year-old male presents with acute decompensated cirrhosis/ liver failure complicated by hepatic encephalopathy, coagulopathy, transaminitis Plan: # Decompensated cirrhosis/acute liver failure: 2/2 chronic alcohol use, acute decompensation 2/2 running out of medications - despite receiving diuretics for several days, he has only really started effectively mobilizing fluid over the past 24-48hrs as his bumex has been uptritrated w/ additional uptitration of aldactone - remains significantly volume overloaded - net neg 2kg (2L) o/n - cont bumex to 2mg IV bid, cont aldactone 50mg daily - cont bblocker for grade I varices - cont Strict I/Os - required ppx for ascites/varices, CTX x 5 days while hospitalized, D#5 - patient's goal is to get to [facility] to visit [place], and he understands he will require SNF in order to be physically well enough to do so # Hepatic encephalopathy: acute, mild, NH4 75 - no coma - cont sched lactulose - mild speech delay, mostly resolved # Coagulopathy: cont vitamin K, cont monitor INR # Hypervolemic hyponatremia: acute, cont diuresis and monitor Na # H/o alcohol abuse: states last drink 6 months ago # Chronic thrombocytopenia: due to cirrhosis, no bleeding # Hypokalemia: replete aggressively today w/ IV K/Mg, monitor w/ aldactone # Macrocytic anemia: denies overt bleeding. H/H stable after transfusion. FOBT neg # Left coccyx pressure injury: present at admission, appreciate wound care - added lidoderm patch Diet. Na diet Ppx. Currently naturally anticoagulated Code. No CPR, palliative consult appreciated Dispo. ADD uncertain, remains very hypervolemic and on IV diuretics, case mgmt to get [facility]TC authorization Subjective: Counseled the patient that he requires ongoing IV diuresis, but he is finally beginning to make some headway, counseled him that he will require usp facility were currently working on finding him 1 Objective: Vital Signs Temp Pulse Resp BP Pulse Ox 37.0 C 51 L 18 107/60 95 09/15/16 12:00 09/15/16 12:00 09/15/16 12:00 09/15/16 12:00 09/15/16 12:00 Laboratory Results 09/15/16 05:31 09/15/16 05:31 09/14/16 09/15/16 09/16/16 05:59 05:59 05:59 Intake Total 1080 1839 Output Total 2200 3200 Balance -1120 -1361 PT 41.8 SEC (12.0-15.0) H 09/15/16 05:31 INR 4.26 (0.83-1.16) H 09/15/16 05:31 - Time Spent With Patient Time Spent with Patient: greater than 25 minutes Time Spent with Patient: Greater than 25 minutes spent on this patients care, greater than 50% of time spent counseling, educating, and coordinating care regarding the above mentioned plan. 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
[2016-09-16 04:54] LABS: HEMATOCRIT 25.3 % (40.0-51.0); HEMOGLOBIN 8.7 g/dL (13.7-17.5); LIPEMIA HEMOLYSIS FLAG 90 (0-99); MEAN CELL HEMOGLOBIN 39.4 pg (27.9-34.1); MEAN CELL HEMOGLOBIN CONCENTR. 34.4 g/dL (32.4-36.7); MEAN CELL VOLUME 114.5 fL (81.5-99.8); PLATELET CLUMPS FLAG 0 (0-99); RED BLOOD CELL COUNT 2.21 10^6/uL (4.40-6.38); RED CELL DISTRIBUTION WIDTH 16.5 % (11.5-15.2)
[2016-09-16 05:01] LABS: PLATELET COUNT 31 10^3/uL (150-400)
[2016-09-16 05:07] LABS: INR 4.57 (0.83-1.16); PROTIME(PATIENT) 44.2 SEC (12.0-15.0)
[2016-09-16 05:08] LABS: ALANINE AMINOTRANSFERASE 35 IU/L (21-72); ALBUMIN 1.9 g/dL (3.5-5.0); ALKALINE PHOSPHATASE 88 IU/L (38-126); ANION GAP 5 mEq/L (8-16); ASPARTATE AMINOTRANSFERASE 48 IU/L (17-59); BILIRUBIN,TOTAL 14.1 mg/dL (0.1-1.4); CALCIUM 7.7 mg/dL (8.5-10.4); CARBON DIOXIDE 26 mEq/l (22-31); CHLORIDE 102 mEq/L (97-110); CREATININE 0.9 mg/dL (0.7-1.3); GLOMERULAR FILTRATION RATE > 60; GLUCOSE 136 mg/dL (70-100); MAGNESIUM 1.7 mg/dL (1.6-2.3); POTASSIUM 3.6 mEq/L (3.5-5.2); SODIUM 133 mEq/L (134-144); TOTAL PROTEIN 5.6 g/dL (6.3-8.2)
[2016-09-16 05:11] LABS: SPECIMEN ICTERUS 15
[2016-09-16] MEDS: PHYTONADIONE 2.5 MG/2.5 ML ORAL UDL PO SCH (11:59)
[2016-09-16] MEDS: BUMETANIDE 1 MG/4 ML VIAL IVP SCH ×2 (11:59→16:48)
[2016-09-16] MEDS: CARVEDILOL 3.125 MG TAB PO SCH ×2 (11:59→16:46)
[2016-09-16] MEDS: LACTULOSE 20 GM/30 ML UDCUP PO SCH ×3 (11:59→21:03)
[2016-09-16] MEDS: LIDOCAINE 5% 1 EA PATCH TD SCH (11:59)
[2016-09-16] MEDS: SPIRONOLACTONE 25 MG TAB PO SCH (12:00)
[2016-09-16] MEDS: POTASSIUM CL 20 MEQ TAB PO SCH (12:00)
[2016-09-16 14:13] LABS: PLATELET ESTIMATE DECREASED (ADEQ)
--- NOTE | 2016-09-16 14:19 | HOSPPROG ---
Hospitalist Progress Note Assessment/Plan: DIAGNOSES: -ACUTE DECOMPENSATION OF CHRONIC ALCOHOLIC CIRRHOSIS WITH HEPATIC FAILURE -ANASARCA WITH DIFFUSE EDEMA AND LARGE VOLUME ASCITES -ACUTE HEPATIC ENCEPHALOPATHY -ACUTE COCCYGEAL PRESSURE INJURY OF SKIN, POA -HYPONATREMIA WITH HYPERVOLEMIA -CHRONIC COAGULOPATHY AND THROMBOCYTOPENIA DUE TO LIVER DISEASE PLANS: - continue diuresis -Brooks wraps to legs to aid in removal of edema from the legs -Continue current diet -PT and OT -Continue lactulose -At this point he is stable for discharge from the hospital to intermediate for ongoing rehabilitation. He however is too weak to trying go home. We at this point are stuck waiting for agency approval for transfer to rehabilitation setting SUBJECTIVE: still feels bloated in the abdomen but no abdominal pain, some nausea but is eating some food No fever symptoms Still weak but stronger than he was Would like to get out of the hospital OBJECTIVE Vitals reviewed: stable without fever Exam: alert oriented; currently no asterixis skin warm dry with marked jaundice still with marked anasarca and examination is suggestive of ascites but nontender resps not labored lungs clear BSs heart regular abd soft nondistended nontender, bowel sounds present limbs warm with good capillary refill iv site ok Objective: Vital Signs Temp Pulse Resp BP Pulse Ox 36.6 C 69 18 95/69 L 89 L 09/16/16 12:00 09/16/16 12:00 09/16/16 12:00 09/16/16 12:00 09/16/16 12:00 Laboratory Results 09/16/16 04:40 09/16/16 04:40 09/15/16 09/16/16 09/17/16 06:59 06:59 06:59 Intake Total 1839 900 Output Total 3200 704 Balance -1361 196 PT 44.2 SEC (12.0-15.0) H 09/16/16 04:40 INR 4.57 (0.83-1.16) H 09/16/16 04:40 ICD10 Worksheet Patient Problems: Problems Problem Status Onset Ascites Acute 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
[2016-09-16] MEDS: BUMETANIDE 2 MG TAB PO SCH ×2 (16:45→16:46)
[2016-09-16] MEDS: PATCH REMOVAL 1 EA PATCH TD SCH (21:45)
[2016-09-17 05:41] LABS: HEMATOCRIT 24.2 % (40.0-51.0); HEMOGLOBIN 8.2 g/dL (13.7-17.5); LIPEMIA HEMOLYSIS FLAG 90 (0-99); MEAN CELL HEMOGLOBIN 38.9 pg (27.9-34.1); MEAN CELL HEMOGLOBIN CONCENTR. 33.9 g/dL (32.4-36.7); MEAN CELL VOLUME 114.7 fL (81.5-99.8); PLATELET CLUMPS FLAG 0 (0-99); RED BLOOD CELL COUNT 2.11 10^6/uL (4.40-6.38); RED CELL DISTRIBUTION WIDTH 16.4 % (11.5-15.2)
[2016-09-17 05:42] LABS: PLATELET COUNT 30 10^3/uL (150-400)
[2016-09-17 05:47] LABS: INR 4.87 (0.83-1.16); PROTIME(PATIENT) 46.5 SEC (12.0-15.0)
[2016-09-17 05:55] LABS: ALANINE AMINOTRANSFERASE 34 IU/L (21-72); ALBUMIN 1.8 g/dL (3.5-5.0); ALKALINE PHOSPHATASE 79 IU/L (38-126); ANION GAP 6 mEq/L (8-16); ASPARTATE AMINOTRANSFERASE 46 IU/L (17-59); BILIRUBIN,TOTAL 13.2 mg/dL (0.1-1.4); CALCIUM 7.6 mg/dL (8.5-10.4); CARBON DIOXIDE 28 mEq/l (22-31); CHLORIDE 99 mEq/L (97-110); GLOMERULAR FILTRATION RATE > 60; GLUCOSE 133 mg/dL (70-100); MAGNESIUM 1.6 mg/dL (1.6-2.3); POTASSIUM 3.3 mEq/L (3.5-5.2); SODIUM 133 mEq/L (134-144); TOTAL PROTEIN 5.4 g/dL (6.3-8.2)
[2016-09-17 05:56] LABS: SPECIMEN ICTERUS 13
[2016-09-17 06:02] LABS: BILIRUBIN-CONJUGATED 7.2 mg/dL (0.0-0.5)
[2016-09-17 06:05] LABS: PLATELET ESTIMATE DECREASED (ADEQ)
[2016-09-17 07:40] VITALS: RESP 18
[2016-09-17] MEDS: LACTULOSE 20 GM/30 ML UDCUP PO SCH ×2 (10:00→16:09)
[2016-09-17] MEDS: BUMETANIDE 2 MG TAB PO SCH ×3 (10:01→16:09)
[2016-09-17] MEDS: SPIRONOLACTONE 25 MG TAB PO SCH ×2 (10:01→10:11)
[2016-09-17] MEDS: POTASSIUM CL 20 MEQ TAB PO SCH (10:02)
[2016-09-17] MEDS: LIDOCAINE 5% 1 EA PATCH TD SCH (10:05)
[2016-09-17] MEDS: CARVEDILOL 3.125 MG TAB PO SCH ×2 (10:10→18:46)
[2016-09-17] MEDS: PHYTONADIONE 2.5 MG/2.5 ML ORAL UDL PO SCH (10:12)
[2016-09-17 12:28] VITALS: PULSE 68; TEMP 97.4
--- NOTE | 2016-09-17 14:59 | PDIAF ---
- Diagnosis Diagnosis: Cirrhosis with ascites; weakness and decondtioning Code Status: Limited Resuscitation - Medication Management Discharge Medications: Medications to Continue on Transfer Carvedilol [Coreg (*)] 3.125 mg PO BIDMEAL 09/06/16 [Last Taken 08/23/16] Bumetanide [Bumex (*)] 2 mg PO BIDDIUR tab 09/17/16 [Last Taken Unknown] Calcium Carbonate [Tums 500MG (*)] 500 mg PO TID PRN #0 tab.chew 09/17/16 [Last Taken Unknown] Famotidine [Pepcid 20 MG (*)] 20 mg PO BID PRN #0 tab 09/17/16 [Last Taken Unknown] Lidocaine 5% [Lidoderm 5% Patch (*)] 1 ea TD DAILY patch 09/17/16 [Last Taken Unknown] Ondansetron Odt [Zofran Odt 4 mg (*)] 4 mg PO Q4HRS PRN #0 tab 09/17/16 [Last Taken Unknown] Patch Removal 1 ea TD DAILY21 patch 09/17/16 [Last Taken Unknown] Phytonadione [Vitamin K (RX)] 2.5 mg PO DAILY udl 09/17/16 [Last Taken Unknown] Spironolactone [Aldactone 25 MG (*)] 50 mg PO DAILY tab 09/17/16 [Last Taken Unknown] Discharge Medications: Refer to the Discharge Home Medication list for PRN reason. PICC Care - Routine: N/A - Orders Services needed: Registered Nurse, Certified Chip Unloader, Master Vice President Of Compliance , Physical Therapy, Occupational Therapy Diet Recommendation: sodium restricted Diet Texture: Regular Texture Diet - Labs/Radiology BMP Date: 09/24/16 - Follow Up Care Current Providers and Referrals: Lupe Chery, GRECIA [Primary Care Provider] - As per Instructions
[2016-09-17 16:04] VITALS: BP 93/62; O2SAT 92
--- NOTE | 2016-09-17 18:10 | PDDCSUM ---
Discharge Summary Discharge Summary: DISCHARGE DIAGNOSES: -ACUTE DECOMPENSATION OF CHRONIC ALCOHOLIC CIRRHOSIS WITH HEPATIC FAILURE -ANASARCA WITH DIFFUSE EDEMA AND LARGE VOLUME ASCITES -ACUTE HEPATIC ENCEPHALOPATHY -ACUTE COCCYGEAL PRESSURE INJURY OF SKIN, POA -HYPONATREMIA WITH HYPERVOLEMIA -CHRONIC COAGULOPATHY AND THROMBOCYTOPENIA DUE TO LIVER DISEASE HOSPITAL COURSE SUMMARY: This patient with chronic alcoholic cirrhosis advanced stage had apparently run out of his medications. He gradually decompensated and presented at this time here with hepatic encephalopathy, ascites, and anasarca. There is no evidence of infection. He did not have any signs of bleeding. He was started back on diuretics as well as his regimen for his encephalopathy. While here he had remarkable recovery and is basically back to his baseline mentation, has still quite a bit of edema but it is notably less than upon arrival and his abdomen is notably less swollen as well. His abdomen is not tense and he is eating without difficulty moving his bowels. He has not had any difficulty with renal or other organ failure outside the liver. At this time he is stable for discharge out of the hospital as long as he continues on his medications. In addition to the above the patient is extremely weak and deconditioned and really not safely mobile on his feet at all. He is therefore at this time transferred from this facility to a senior living facility for ongoing physical therapy rehabilitation. PENDING TEST RESULTS: None MEDICATION CHANGES: Resumption of his Lasix, Aldactone, and lactulose FOLLOW-UP PLAN: With his primary care physician's upon being discharged from senior living facility Greater than 35 minutes bedside and care coordination time today
== END 2016-09-17 21:27 | DRG 433 ==
LOC: F3N 20:30 → F3E 09-11 15:35
PROVIDERS: ADMIT Hospitalist; ATTEND Hospitalist
DX: K70.31 Alcoholic cirrhosis of liver with ascites (principal); E87.1 Hypo-osmolality and hyponatremia; K70.11 Alcoholic hepatitis with ascites; L89.159 Pressure ulcer of sacral region, unspecified stage; E87.70 Fluid overload, unspecified; D69.6 Thrombocytopenia, unspecified; D53.9 Nutritional anemia, unspecified
CPT/HCPCS: 97110-GO; 97116-GP; 97162-GP; 97165-GO; 97530-GO; 97530-GP; 97535-GO; G8987-GO-CI; G8988-GO-CI; J0696; J1940; J2405; J3475; P9016